=== PATIENT | female | born 1930 | race Caucasian/White ===

== ENCOUNTER 2017-04-17 08:20 | Emergency (ER) | payer MEDICARE, OTHER ==
[2017-04-17] MEDS ORDERED: Aspirin 81 MG Tab.Chew PO ONE (08:31)
[2017-04-17] MEDS ORDERED: Nitroglycerin 2% Oint 1 GM UD Packet TOP ONE (08:31)
--- NOTE | 2017-04-17 08:36 | EDM.PDOC ---
ED HPI GENERAL MEDICAL PROBLEM - General Chief Complaint: Cardiovascular Problem Stated Complaint: Chest pain Time Seen by Provider: 04/17/17 08:20 Source of Information: Reports: Patient, EMS History Limitations: Reports: No Limitations - History of Present Illness INITIAL COMMENTS - FREE TEXT/NARRATIVE: 86 YO WF present to ER by EMS complaining of intermittent chest pain with right arm and shoulder pain. Pt reports she has had associated right sided headaches. Pt denies any shortness of breath, nausea/vomiting or dizziness. Pt denies any weakness or parathesias. Pt's daughter called EMS after her mom started to complain of her head hurting. Pt is alert and oriented x 3 and currently painfree. Onset: Sudden Onset Date: 04/17/17 Onset Time: 07:30 Location: Reports: Head, Chest, Upper Extremity, Right Quality: Reports: Ache Severity: Mild Improves with: Reports: None Worsens with: Reports: None Associated Symptoms: Reports: Chest Pain, Headaches. Denies: Cough, cough w sputum, Diaphoresis, Fever/Chills, Nausea/Vomiting, Seizure, Shortness of Breath , Syncope, Weakness Right Upper Arm Pain Score (Numeric/FACES): 6 - Related Data Allergies Allergy/AdvReac Type Severity Reaction Status Date / Time morphine Allergy Unknown Cannot Verified 04/17/17 09:06 Remember Sulfa (Sulfonamide Allergy Unknown Cannot Verified 04/17/17 09:06 Antibiotics) Remember Home Meds: Home Meds ALPRAZolam [Alprazolam] 0.125 mg PO BID PRN 04/30/13 [History] Aspirin [Halfprin] 81 mg PO BEDTIME 04/30/13 [History] Hydrochlorothiazide 12.5 mg PO DAILY PRN 04/30/13 [History] Metoprolol Tartrate [Lopressor] 25 mg PO BID 04/30/13 [History] Multivitamin [Multi-Vitamin Daily] 1 tab PO DAILY 04/30/13 [History] Omeprazole 20 mg PO ACBREAKFAST 04/30/13 [History] metFORMIN [Glucophage] 1,000 mg PO BIDMEALS 05/02/13 [History] Levothyroxine 125 mcg PO ACBREAKFAST 01/13/15 [History] Sertraline HCl 100 mg PO BEDTIME 04/07/16 [History] Acetaminophen with Codeine [Tylenol with Codeine #3 Tablet] 1 tab PO BID PRN 01/13 [History] Magnesium Oxide 500 mg PO DAILY 06/07/16 [History] Timolol Maleate [Timoptic 0.5% Ophth Soln] 5 ml EYEBOTH BID 06/07/16 [History] Cetirizine [ZyrTEC] 10 mg PO DAILY PRN 04/17/17 [History] glipiZIDE [Glipizide ER] 2.5 mg PO DAILY 04/17/17 [History] Past Medical History HEENT History: Reports: Hard of Hearing, Impaired Vision Cardiovascular History: Reports: High Cholesterol, Hypertension, [place] Respiratory History: Reports: COPD, SOB Other Respiratory History: on home O2 Gastrointestinal History: Reports: Chronic Constipation, GERD Genitourinary History: Reports: Urinary Incontinence Musculoskeletal History: Reports: Arthritis, Other (See Below) Other Musculoskeletal History: chronic knee pain Neurological History: Reports: Headaches, Chronic Psychiatric History: Reports: Anxiety Endocrine/Metabolic History: Reports: Diabetes, Type II, Hypothyroidism Hematologic History: Reports: Anemia, B12 Deficiency Oncologic (Cancer) History: Reports: Uterine - Infectious Disease History Infectious Disease History: Reports: Shingles - Past Surgical History GI Surgical History: Reports: Appendectomy Female Surgical History: Reports: Hysterectomy Social & Family History - Tobacco Use Smoking Status *Q: Former Smoker Years of Tobacco use: 30 Packs/Tins Daily: 1.5 Used Tobacco, but Quit: Yes Month Tobacco Last Used: 20 Second Hand Smoke Exposure: No - Caffeine Use Caffeine Use: Reports: Coffee - Alcohol Use Days Per Week of Alcohol Use: 0 - Recreational Drug Use Recreational Drug Use: No ED ROS GENERAL - Review of Systems Review Of Systems: See Below Constitutional: Reports: No Symptoms HEENT: Reports: No Symptoms Respiratory: Reports: No Symptoms Cardiovascular: Reports: Chest Pain Endocrine: Reports: No Symptoms GI/Abdominal: Reports: No Symptoms : Reports: No Symptoms Musculoskeletal: Reports: Shoulder Pain, Arm Pain Skin: Reports: No Symptoms Neurological: Reports: Headache Psychiatric: Reports: No Symptoms Hematologic/Lymphatic: Reports: No Symptoms Immunologic: Reports: No Symptoms ED EXAM, GENERAL - Physical Exam Exam: See Below Exam Limited By: No Limitations General Appearance: Alert, WD/WN, No Apparent Distress Eye Exam: Bilateral Eye: EOMI, PERRL Ears: Normal External Exam, Normal Canal, Hearing Grossly Normal, Normal TMs Nose: Normal Inspection, Normal Mucosa, No Blood Throat/Mouth: Normal Inspection, Normal Lips, Normal Teeth, Normal Gums, Normal Oropharynx, Normal Voice, No Airway Compromise Head: Atraumatic, Normocephalic Neck: Normal Inspection, Supple, Non-Tender, Full Range of Motion Respiratory/Chest: No Respiratory Distress, Lungs Clear, Normal Breath Sounds, No Accessory Muscle Use, Chest Non-Tender Cardiovascular: Normal Peripheral Pulses, No Edema, No Gallop, No JVD, No Murmur , No Rub, Irregularly Irregular GI/Abdominal: Normal Bowel Sounds, Soft, Non-Tender, No Organomegaly, No Distention, No Abnormal Bruit, No Mass Back Exam: Normal Inspection, Full Range of Motion, NT Extremities: Normal Inspection, Normal Range of Motion, Non-Tender, Normal Capillary Refill, No Pedal Edema Neurological: Alert, Oriented, CN II-XII Intact, Normal Cognition, Normal Gait, Normal Reflexes, No Motor/Sensory Deficits Psychiatric: Normal Affect, Normal Mood Skin Exam: Warm, Dry, Intact, Normal Color, No Rash Lymphatic: No Adenopathy EKG INTERPRETATION EKG Date: 04/17/17 Time: 08:42 Rhythm: NSR Rate (Beats/Min): 82 [place]: LAD-Left [place] Deviation P-Wave: Present QRS: Normal ST-T: Normal QT: Normal Comparison: NA - No Prior EKG Course - Vital Signs Last Recorded V/S: Last Vital Signs Temp 35.7 C 04/17/17 09:25 Pulse 86 04/17/17 09:25 Resp 26 H 04/17/17 09:25 BP 148/68 H 04/17/17 09:25 Pulse Ox 94 L 04/17/17 09:25 - Orders/Labs/Meds Orders: Active Orders 24 hr Category Date Time Status EKG Documentation Completion [RC] ASDIRECTED Care 04/17/17 08:31 Active Chest 1V Frontal [CR] Stat Exams 04/17/17 08:31 Ordered Head wo Cont [CT] Stat Exams 04/17/17 08:31 Taken EKG 12 Lead [EK] Routine Ther 04/17/17 08:31 Ordered Labs: Laboratory Tests 04/17/17 04/17/17 04/17/17 Range/Units 08:10 08:10 08:10 WBC 8.1 (5.0-10.0) 10^3/uL RBC 4.34 (3.80-5.50) 10^6/uL Hgb 12.2 (12.0-16.0) g/dL Hct 38.1 (37.0-47.0) % MCV 87.8 (82.0-92.0) fL MCH 28.2 (27.0-31.0) pg MCHC 32.1 (32.0-36.0) g/dL RDW 13.2 (11.5-14.5) % Plt Count 224 (150-300) 10^3/uL MPV 8.5 (7.4-10.4) fL Neut % (Auto) 62.1 (50.0-70.0) % Lymph % (Auto) 26.7 (20.0-40.0) % [place] % (Auto) 8.2 H (2.0-8.0) % Eos % (Auto) 2.6 (1.0-3.0) % Baso % (Auto) 0.4 (0.0-1.0) % Neut # (Auto) 5.0 (2.5-7.0) 10^3/uL Lymph # (Auto) 2.2 (1.0-4.0) 10^3/uL [place] # (Auto) 0.7 (0.1-0.8) 10^3/uL Eos # (Auto) 0.2 (0.1-0.3) 10^3/uL Baso # (Auto) 0.0 (0.0-0.1) 10^3/uL PT 9.3 (8.9-11.4) SEC INR 0.9 (0.9-1.1) APTT 23.0 (20.8-31.2) SEC Sodium 143 (136-145) mmol/L Potassium 4.6 (3.3-5.3) mmol/L Chloride 105 (98-115) mmol/L Carbon Dioxide 33.0 H (21.0-32.0) mmol/L BUN 21 (6-25) mg/dL Creatinine 0.88 (0.51-1.17) mg/dL Est Cr Clr Drug Dosing 32.96 mL/min Estimated GFR (MDRD) > 60 mL/min Glucose 154 H (70-110) mg/dL Calcium 9.1 (8.7-10.3) mg/dL Total Bilirubin 0.3 (0.2-1.0) mg/dL AST 16 (15-37) U/L ALT 19 (12-78) U/L Alkaline Phosphatase 74 (46-116) IU/L Creatine Kinase 29 (26-276) U/L CK-MB (CK-2) < 0.50 (0.00-4.30) ng/mL Troponin I < 0.04 (0.00-0.070) ng/mL Total Protein 7.0 (6.4-8.2) g/dL Albumin 3.60 (3.00-4.80) g/dL Meds: Medications Discontinued Medications Generic Name Dose Route Start Last Admin Trade Name Freq PRN Reason Stop Dose Admin Aspirin 324 mg 04/17/17 08:31 04/17/17 08:46 Aspirin PO 04/17/17 08:32 324 mg ONETIME ONE Administration Nitroglycerin 1 gm 04/17/17 08:31 04/17/17 08:47 Nitro-Bid 2% TOP 04/17/17 08:32 1 gm ONETIME ONE Administration - Radiology Interpretation Free Text/Narrative:: CXR- NAD CT Head- NAD Departure - Departure Time of Disposition: 09:54 Disposition: Home, Self-Care 01 Condition: Good Clinical Impression: Extremity pain Qualifiers: Extremity pain location: upper extremity Laterality: right Qualified Code(s): M79.601 - Pain in right arm Headache Qualifiers: Headache type: unspecified Headache chronicity pattern: episodic headache Intractability: not intractable Qualified Code(s): R51 - Headache - Discharge Information Instructions: Headache and Arthritis Referrals: Krzysztof Patel MD [Primary Care Provider] - Forms: ED Department Discharge - My Orders Last 24 Hours: My Active Orders 04/17/17 08:31 EKG Documentation Completion [RC] ASDIRECTED Chest 1V Frontal [CR] Stat Head wo Cont [CT] Stat EKG 12 Lead [EK] Routine - Assessment/Plan Last 24 Hours: My Active Orders 04/17/17 08:31 EKG Documentation Completion [RC] ASDIRECTED Chest 1V Frontal [CR] Stat Head wo Cont [CT] Stat EKG 12 Lead [EK] Routine Assessment:: 1. right sided pain without weakness or parathesia 2. questionable chest pain- negative ER workup Plan: 1. discharge home 2. discussed case with Dr Greco who states he will see patient in clinic- Pt has been evaluated for right sided pain in the past and is scheduled for physical therapy this saturday and follow up in the office this week 3. return to ER for worsening symptoms
[2017-04-17 09:24] LABS: CHLORIDE,CL 105 mmol/L (98-115); SODIUM,NA 143 mmol/L (136-145)
[2017-04-17 09:27] VITALS: BP 148/68
[2017-04-17] MEDS ORDERED: Ketorolac 30 MG/ML SDV IVPUSH ONE (09:59)
== END 2017-04-17 10:50 | disposition home or self-care (01) ==
LOC: KA.ED 08:20
DX: R51 Headache (principal); M79.601 Pain in right arm; E78.00 Pure hypercholesterolemia, unspecified; I10 Essential (primary) hypertension; E11.9 Type 2 diabetes mellitus without complications; Z88.5 Allergy status to narcotic agent; Z88.2 Allergy status to sulfonamides; Z79.899 Other long term (current) drug therapy; Z79.82 Long term (current) use of aspirin; Z79.84 Long term (current) use of oral hypoglycemic drugs; Z87.891 Personal history of nicotine dependence
CPT/HCPCS: 70450; 71010; 80053; 82550; 82553; 84484; 85025; 85610; 85730; 96374; 99285; A9270; J1885; 93005; 99284

== ENCOUNTER 2018-05-05 18:02 | Emergency (ER) | payer MEDICARE, OTHER ==
--- NOTE | 2018-05-05 18:23 | EDM.PDOC ---
ED HPI GENERAL MEDICAL PROBLEM - General Chief Complaint: Lower Extremity Injury/Pain Stated Complaint: leg pain Time Seen by Provider: 05/05/18 18:02 Source of Information: Reports: Patient, Other (caregiver) History Limitations: Reports: Altered Mental Status (chronic dementia) - History of Present Illness INITIAL COMMENTS - FREE TEXT/NARRATIVE: Patient brought to ER with complaint of left leg pain. Not sure how long. Now patient identifies low abdominal pain. She says she has frequent diarrhea. There is evidence of significant dementia that is not abnormal per caregiver. - Related Data Allergies Allergy/AdvReac Type Severity Reaction Status Date / Time morphine Allergy Unknown Cannot Verified 05/05/18 18:46 Remember Sulfa (Sulfonamide Allergy Unknown Cannot Verified 05/05/18 18:46 Antibiotics) Remember Home Meds: Home Meds ALPRAZolam [Alprazolam] 0.125 mg PO BID PRN 04/30/13 [History] Aspirin [Halfprin] 81 mg PO BEDTIME 04/30/13 [History] Hydrochlorothiazide 12.5 mg PO DAILY PRN 04/30/13 [History] Metoprolol Tartrate [Lopressor] 25 mg PO BID 04/30/13 [History] Multivitamin [Multi-Vitamin Daily] 1 tab PO DAILY 04/30/13 [History] Omeprazole 20 mg PO ACBREAKFAST 04/30/13 [History] metFORMIN [Glucophage] 1,000 mg PO BIDMEALS 05/02/13 [History] Levothyroxine 125 mcg PO ACBREAKFAST 01/13/15 [History] Sertraline HCl 100 mg PO BEDTIME 04/07/16 [History] Acetaminophen with Codeine [Tylenol with Codeine #3 Tablet] 1 tab PO BID PRN 01/13 [History] Magnesium Oxide 500 mg PO DAILY 06/07/16 [History] Timolol Maleate [Timoptic 0.5% Ophth Soln] 5 ml EYEBOTH BID 06/07/16 [History] Cetirizine [ZyrTEC] 10 mg PO DAILY PRN 04/17/17 [History] glipiZIDE [Glipizide ER] 2.5 mg PO DAILY 04/17/17 [History] Past Medical History HEENT History: Reports: Hard of Hearing, Impaired Vision Cardiovascular History: Reports: High Cholesterol, Hypertension, [place] Respiratory History: Reports: COPD, SOB Other Respiratory History: on home O2 Gastrointestinal History: Reports: Chronic Constipation, GERD Genitourinary History: Reports: Urinary Incontinence [employer] History: Reports: Musculoskeletal History: Reports: Arthritis, Other (See Below) Other Musculoskeletal History: chronic knee pain Neurological History: Reports: Headaches, Chronic Psychiatric History: Reports: Anxiety Endocrine/Metabolic History: Reports: Diabetes, Type II, Hypothyroidism Hematologic History: Reports: Anemia, B12 Deficiency Oncologic (Cancer) History: Reports: Uterine - Infectious Disease History Infectious Disease History: Reports: Shingles - Past Surgical History GI Surgical History: Reports: Appendectomy Female Surgical History: Reports: Hysterectomy Social & Family History - Family History Family Medical History: Noncontributory - Caffeine Use Caffeine Use: Reports: Coffee Caffeine Use Comment: coke once in awhile Review of Systems - Review of Systems Review Of Systems: ROS reveals no pertinent complaints other than HPI. ED EXAM, GENERAL - Physical Exam Exam: See Below Exam Limited By: Altered Mental Status General Appearance: Alert, WD/WN, No Apparent Distress Eye Exam: Bilateral Eye: EOMI, Normal Inspection, PERRL Ears: Normal External Exam, Hearing Loss (chronic) Nose: Normal Inspection, No Blood Throat/Mouth: Normal Inspection, Normal Lips, Normal Voice, No Airway Compromise Head: Atraumatic, Normocephalic Neck: Normal Inspection, Supple, Non-Tender, Full Range of Motion Respiratory/Chest: No Respiratory Distress, Lungs Clear, Normal Breath Sounds, No Accessory Muscle Use. No: Crackles, Rales, Rhonchi, Wheezing, Stridor Cardiovascular: Normal Peripheral Pulses, Regular Rate, Rhythm, No Edema, No Gallop, No JVD, No Murmur, No Rub Peripheral Pulses: 2+: Carotid (L), Carotid (R), Radial (L), Radial (R), Posterior Tibial (L), Posterior Tibial (R) GI/Abdominal: Normal Bowel Sounds, Soft, No Organomegaly, No Distention, No Abnormal Bruit, No Mass, Tender (mildly, suprapubic). No: Distended, Guarding, Rigid, Rebound Back Exam: No: CVA Tenderness (L), CVA Tenderness (R) Extremities: Normal Range of Motion, No Pedal Edema, Normal Capillary Refill, Other (Exam normal except a vague lateral thigh pain on palpation; not consistently repeatable). No: Mottled, Pallor, Redness Neurological: Alert, No Motor/Sensory Deficits, Memory Loss Remote Events, Memory Loss Recent Events Psychiatric: Normal Affect, Normal Mood, Other (verbose and suspicious) Skin Exam: Warm, Dry, Intact, Normal Color, No Rash Course - Vital Signs Last Recorded V/S: Last Vital Signs Temp 98.2 F 05/05/18 18:06 Pulse 77 05/05/18 18:06 Resp 21 H 05/05/18 18:06 BP 151/54 H 05/05/18 18:06 Pulse Ox 93 L 05/05/18 18:06 - Orders/Labs/Meds Orders: Active Orders 24 hr Category Date Time Status Hip Min 2V or 3V w Pelvis Lt [CR] Stat Exams 05/05/18 18:13 Ordered Labs: Laboratory Tests 05/05/18 05/05/18 05/05/18 Range/Units 18:25 18:27 18:27 WBC 6.89 (5.00-10.00) 10^3/uL RBC 3.85 (3.80-5.50) 10^6/uL Hgb 11.1 L (12.0-16.0) g/dL Hct 35.4 L (37.0-47.0) % MCV 91.9 D (82.0-92.0) fL MCH 28.8 (27.0-31.0) pg MCHC 31.4 L (32.0-36.0) g/dL RDW 13.1 (11.5-14.5) % Plt Count 186 (150-400) 10^3/uL MPV 10.0 (7.4-10.4) fL Immature Gran % (Auto) 0.3 (0.0-5.0) % Neut % (Auto) 58.4 (50.0-70.0) % Lymph % (Auto) 29.2 (20.0-40.0) % [place] % (Auto) 9.4 H (2.0-8.0) % Eos % (Auto) 2.6 (1.0-3.0) % Baso % (Auto) 0.1 (0.0-1.0) % Immature Gran # (Auto) 0.02 (0.00-0.50) 10^3/uL Neut # (Auto) 4.02 (2.50-7.00) 10^3/uL Lymph # (Auto) 2.01 (1.00-4.00) 10^3/uL [place] # (Auto) 0.65 (0.10-0.80) 10^3/uL Eos # (Auto) 0.18 (0.10-0.30) 10^3/uL Baso # (Auto) 0.01 (0.00-0.10) 10^3/uL Sodium 144 (136-145) mmol/L Potassium 4.6 (3.3-5.3) mmol/L Chloride 104 (98-115) mmol/L Carbon Dioxide 27.5 (21.0-32.0) mmol/L Anion Gap 17.1 H (5-15) mmol/L BUN 19 (6-25) mg/dL Creatinine 0.87 (0.51-1.17) mg/dL Est Cr Clr Drug Dosing TNP Estimated GFR (MDRD) > 60 mL/min Glucose 86 (75 - 99) mg/dL POC Glucose 80 (74-106) mg/dl Calcium 8.4 L (8.7-10.3) mg/dL Total Bilirubin 0.2 (0.2-1.0) mg/dL AST 12 L (15-37) U/L ALT 17 (12-78) U/L Alkaline Phosphatase 60 (46-116) IU/L Total Protein 6.4 (6.4-8.2) g/dL Albumin 3.29 (3.00-4.80) g/dL Specimen Type Urine Color (YELLOW) Urine Appearance (CLEAR) Urine pH (5.0-9.0) Ur Specific [place] (1.005-1.030) Urine Protein (NEGATIVE) mg/dL Urine Glucose (UA) (NEGATIVE) mg/dL Urine Ketones (NEGATIVE) mg/dL Urine Occult Blood (NEGATIVE) Urine Nitrite (NEGATIVE) Urine Bilirubin (NEGATIVE) Urine Urobilinogen (0.2-1.0) E.U./dL Ur Leukocyte Esterase (NEGATIVE) Urine RBC (0-5) /HPF Urine WBC (0-5) /HPF Ur Epithelial Cells /LPF Urine Bacteria (NONE TO FEW) /HPF Hyaline Casts (NEGATIVE) /LPF Urine Mucus (NEGATIVE) /LPF 05/05/18 Range/Units 18:40 WBC (5.00-10.00) 10^3/uL RBC (3.80-5.50) 10^6/uL Hgb (12.0-16.0) g/dL Hct (37.0-47.0) % MCV (82.0-92.0) fL MCH (27.0-31.0) pg MCHC (32.0-36.0) g/dL RDW (11.5-14.5) % Plt Count (150-400) 10^3/uL MPV (7.4-10.4) fL Immature Gran % (Auto) (0.0-5.0) % Neut % (Auto) (50.0-70.0) % Lymph % (Auto) (20.0-40.0) % [place] % (Auto) (2.0-8.0) % Eos % (Auto) (1.0-3.0) % Baso % (Auto) (0.0-1.0) % Immature Gran # (Auto) (0.00-0.50) 10^3/uL Neut # (Auto) (2.50-7.00) 10^3/uL Lymph # (Auto) (1.00-4.00) 10^3/uL [place] # (Auto) (0.10-0.80) 10^3/uL Eos # (Auto) (0.10-0.30) 10^3/uL Baso # (Auto) (0.00-0.10) 10^3/uL Sodium (136-145) mmol/L Potassium (3.3-5.3) mmol/L Chloride (98-115) mmol/L Carbon Dioxide (21.0-32.0) mmol/L Anion Gap (5-15) mmol/L BUN (6-25) mg/dL Creatinine (0.51-1.17) mg/dL Est Cr Clr Drug Dosing Estimated GFR (MDRD) mL/min Glucose (75 - 99) mg/dL POC Glucose (74-106) mg/dl Calcium (8.7-10.3) mg/dL Total Bilirubin (0.2-1.0) mg/dL AST (15-37) U/L ALT (12-78) U/L Alkaline Phosphatase (46-116) IU/L Total Protein (6.4-8.2) g/dL Albumin (3.00-4.80) g/dL Specimen Type Urinblad Urine Color Yellow (YELLOW) Urine Appearance Clear (CLEAR) Urine pH 5.5 (5.0-9.0) Ur Specific [place] 1.025 (1.005-1.030) Urine Protein Negative (NEGATIVE) mg/dL Urine Glucose (UA) Negative (NEGATIVE) mg/dL Urine Ketones Negative (NEGATIVE) mg/dL Urine Occult Blood Negative (NEGATIVE) Urine Nitrite Negative (NEGATIVE) Urine Bilirubin Negative (NEGATIVE) Urine Urobilinogen 0.2 (0.2-1.0) E.U./dL Ur Leukocyte Esterase Negative (NEGATIVE) Urine RBC 0-5 (0-5) /HPF Urine WBC 5-10 H (0-5) /HPF Ur Epithelial Cells Moderate H /LPF Urine Bacteria Few (NONE TO FEW) /HPF Hyaline Casts Occasional H (NEGATIVE) /LPF Urine Mucus Moderate H (NEGATIVE) /LPF - Re-Assessments/Exams Free Text/Narrative Re-Assessment/Exam: 05/05/18 19:04 Labs and xrays okay. Patient said she is not having any pain now. 05/05/18 19:10 Patient now points to her buttocks and says she hurts there identifying the left upper buttock. I examined this and found no sores, redness or ecchymosis. She has hemorrhoids but not inflamed or bleeding. Pelvis xray looks good. I discussed findings and treatment plan with daughter who just arrived. She is trying to get her set up with home PT for sciatica. Patient discharged to home in stable condition. Departure - Departure Time of Disposition: 19:23 Disposition: Home, Self-Care 01 Condition: Good Clinical Impression: Left buttock pain - Discharge Information Forms: ED Department Discharge Additional Instructions: 1. Continue the tylenol as needed. 2. I recommend pursuing PT treatment as discussed. - My Orders Last 24 Hours: My Active Orders 05/05/18 18:13 Hip Min 2V or 3V w Pelvis Lt [CR] Stat - Assessment/Plan Last 24 Hours: My Active Orders 05/05/18 18:13 Hip Min 2V or 3V w Pelvis Lt [CR] Stat
[2018-05-05 18:57] LABS: ANION GAP 17.1 mmol/L (5-15); CHLORIDE,CL 104 mmol/L (98-115); SODIUM,NA 144 mmol/L (136-145)
[2018-05-05 19:16] VITALS: BP 138/51
== END 2018-05-05 19:44 | disposition home or self-care (01) ==
LOC: KA.ED 18:02
DX: M79.18 Myalgia, other site (principal); K64.9 Unspecified hemorrhoids; M54.89 Other dorsalgia; E78.00 Pure hypercholesterolemia, unspecified; J44.9 Chronic obstructive pulmonary disease, unspecified; I25.2 Old myocardial infarction; K21.9 Gastro-esophageal reflux disease without esophagitis; I10 Essential (primary) hypertension; E11.9 Type 2 diabetes mellitus without complications; E03.9 Hypothyroidism, unspecified; F41.9 Anxiety disorder, unspecified; Z79.84 Long term (current) use of oral hypoglycemic drugs; Z79.899 Other long term (current) drug therapy; Z88.5 Allergy status to narcotic agent; Z88.2 Allergy status to sulfonamides; Z90.89 Acquired absence of other organs; Z90.710 Acquired absence of both cervix and uterus; Z79.82 Long term (current) use of aspirin
CPT/HCPCS: 36415; 80053; 81001; 82962; 85025; 99282; 99284

== ENCOUNTER 2018-05-25 12:49 | Emergency (ER) | payer MEDICARE, OTHER ==
--- NOTE | 2018-05-25 12:57 | EDM.PDOC ---
ED HPI GENERAL MEDICAL PROBLEM - General Chief Complaint: ENT Problem Stated Complaint: ? FOREIGN OBJET IN THROAT Time Seen by Provider: 05/25/18 12:50 Source of Information: Reports: Patient History Limitations: Reports: No Limitations - History of Present Illness INITIAL COMMENTS - FREE TEXT/NARRATIVE: 87 YO WF presents to ER with complaints of sensation of foreign body in her throat. Pt has had this issue in the past 03/27/15 and was found to have no radiological evidence of foreign body. Pt denies any difficulty breathing, denies dysphagia to solids or liquids, no chest pain or shortness of breath. Pt without stridor or wheezing or change in voice. Pt denies any known episode of foreign body ingestion but states it "feels like something is in my throat". Pt tolerating fluid challenge and was able to eat breakfast this am. Onset Date: 05/24/18 Duration: Day(s): (2) Location: Reports: Neck Quality: Reports: Dull Severity: Mild Improves with: Reports: None Worsens with: Reports: Other (swallowing) Associated Symptoms: Reports: No Other Symptoms. Denies: Cough, Fever/Chills, Nausea/Vomiting, Shortness of Breath Throat Pain Score (Numeric/FACES): 8 - Related Data Allergies Allergy/AdvReac Type Severity Reaction Status Date / Time morphine Allergy Unknown Cannot Verified 05/25/18 12:56 Remember Sulfa (Sulfonamide Allergy Unknown Cannot Verified 05/25/18 12:56 Antibiotics) Remember Home Meds: Home Meds ALPRAZolam [Alprazolam] 0.125 mg PO BID PRN 04/30/13 [History] Aspirin [Halfprin] 81 mg PO BEDTIME 04/30/13 [History] Hydrochlorothiazide 12.5 mg PO DAILY PRN 04/30/13 [History] Metoprolol Tartrate [Lopressor] 25 mg PO BID 04/30/13 [History] Multivitamin [Multi-Vitamin Daily] 1 tab PO DAILY 04/30/13 [History] Omeprazole 20 mg PO ACBREAKFAST 04/30/13 [History] metFORMIN [Glucophage] 1,000 mg PO BIDMEALS 05/02/13 [History] Levothyroxine 125 mcg PO ACBREAKFAST 01/13/15 [History] Sertraline HCl 100 mg PO BEDTIME 04/07/16 [History] Acetaminophen with Codeine [Tylenol with Codeine #3 Tablet] 1 tab PO BID PRN 01/13 [History] Magnesium Oxide 500 mg PO DAILY 06/07/16 [History] Timolol Maleate [Timoptic 0.5% Ophth Soln] 5 ml EYEBOTH BID 06/07/16 [History] Cetirizine [ZyrTEC] 10 mg PO DAILY PRN 04/17/17 [History] glipiZIDE [Glipizide ER] 2.5 mg PO DAILY 04/17/17 [History] Past Medical History HEENT History: Reports: Hard of Hearing, Impaired Vision Cardiovascular History: Reports: High Cholesterol, Hypertension, [place] Respiratory History: Reports: COPD, SOB Other Respiratory History: on home O2 Gastrointestinal History: Reports: Chronic Constipation, GERD Genitourinary History: Reports: Urinary Incontinence 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: Musculoskeletal History: Reports: Arthritis, Other (See Below) Other Musculoskeletal History: chronic knee pain Neurological History: Reports: Headaches, Chronic Psychiatric History: Reports: Anxiety Endocrine/Metabolic History: Reports: Diabetes, Type II, Hypothyroidism Hematologic History: Reports: Anemia, B12 Deficiency Oncologic (Cancer) History: Reports: Uterine - Infectious Disease History Infectious Disease History: Reports: Shingles - Past Surgical History GI Surgical History: Reports: Appendectomy Female Surgical History: Reports: Hysterectomy Social & Family History - Family History Family Medical History: Noncontributory - Caffeine Use Caffeine Use: Reports: Coffee Caffeine Use Comment: coke once in awhile ED ROS ENT - Review of Systems Review Of Systems: See Below Constitutional: Reports: No Symptoms HEENT: Reports: Throat Pain. Denies: Throat Swelling Respiratory: Reports: No Symptoms Cardiovascular: Reports: No Symptoms Endocrine: Reports: No Symptoms GI/Abdominal: Reports: No Symptoms : Reports: No Symptoms Musculoskeletal: Reports: No Symptoms Skin: Reports: No Symptoms Neurological: Reports: No Symptoms Psychiatric: Reports: No Symptoms Hematologic/Lymphatic: Reports: No Symptoms Immunologic: Reports: No Symptoms ED EXAM, ENT - Physical Exam Exam: See Below Exam Limited By: No Limitations General Appearance: Alert, WD/WN, No Apparent Distress Nose: Normal Inspection, Normal Mucousa, No Blood Mouth/Throat: Normal Inspection, Normal Gums, Normal Lips, Normal Oropharynx, Normal Teeth Head: Atraumatic, Normocephalic Neck: Normal Inspection, Supple, Non-Tender, Full Range of Motion Respiratory/Chest: No Respiratory Distress, Lungs Clear, Normal Breath Sounds, No Accessory Muscle Use, Chest Non-Tender Cardiovascular: Normal Peripheral Pulses, Regular Rate, Rhythm, No Edema, No Gallop, No JVD, No Murmur, No Rub GI/Abdominal: Normal Bowel Sounds, Soft, Non-Tender, No Organomegaly, No Distention, No Abnormal Bruit, No Mass Back: Normal Inspection, Full Range of Motion Extremities: Normal Inspection, Normal Range of Motion, Non-Tender, No Pedal Edema, Normal Capillary Refill Neurological: Alert, Oriented, CN II-XII Intact, Normal Cognition, Normal Gait, Normal Reflexes, No Motor/Sensory Deficits Psychiatric: Normal Affect, Normal Mood Skin: Warm, Dry, Intact, Normal Color, No Rash Lymphatic: No Adenopathy Course - Vital Signs Last Recorded V/S: Last Vital Signs Temp 36.2 C 05/25/18 12:56 Pulse 86 05/25/18 12:56 Resp 20 05/25/18 12:56 BP 117/79 05/25/18 12:56 Pulse Ox 90 L 05/25/18 12:56 - Orders/Labs/Meds Orders: Active Orders 24 hr Category Date Time Status Neck Soft Tissue [CR] Stat Exams 05/25/18 12:54 Ordered Meds: Medications Discontinued Medications Generic Name Dose Route Start Last Admin Trade Name Freq PRN Reason Stop Dose Admin Al Hydroxide/Mg Hydroxide 45 ml 05/25/18 13:19 Gi Cocktail PO 05/25/18 13:20 ONETIME ONE - Radiology Interpretation Free Text/Narrative:: xray- no evidence of foreign body Departure - Departure Time of Disposition: 13:31 Disposition: Home, Self-Care 01 Condition: Good Clinical Impression: Sore throat - Discharge Information Instructions: Dysphagia, Sore Throat, [id number] Referrals: Shannon Man PA-C [Primary Care Provider] - Forms: ED Department Discharge Additional Instructions: 1. discharge home 2. GI cocktail 3. tylenol/motrin for pain 4. follow up in clinic for further evaluation and treatment - My Orders Last 24 Hours: My Active Orders 05/25/18 12:54 Neck Soft Tissue [CR] Stat - Assessment/Plan Last 24 Hours: My Active Orders 05/25/18 12:54 Neck Soft Tissue [CR] Stat Assessment:: 1. sore throat Plan: 1. discharge home 2. GI cocktail 3. tylenol/motrin for pain 4. follow up in clinic for further evaluation and treatment
[2018-05-25 13:01] VITALS: BP 117/79
[2018-05-25] MEDS ORDERED: GI Cocktail 45 ML BOTTLE PO ONE (13:19)
== END 2018-05-25 14:10 | disposition home or self-care (01) ==
LOC: KA.ED 12:49
DX: J02.9 Acute pharyngitis, unspecified (principal); E78.00 Pure hypercholesterolemia, unspecified; I10 Essential (primary) hypertension; I25.2 Old myocardial infarction; J44.9 Chronic obstructive pulmonary disease, unspecified; E11.9 Type 2 diabetes mellitus without complications; E03.9 Hypothyroidism, unspecified; Z79.82 Long term (current) use of aspirin; Z79.899 Other long term (current) drug therapy; Z79.84 Long term (current) use of oral hypoglycemic drugs; Z88.2 Allergy status to sulfonamides
CPT/HCPCS: 70360; 99283; A9270-GY

== ENCOUNTER 2018-07-23 02:27 | Emergency (ER) | payer MEDICARE, OTHER ==
--- NOTE | 2018-07-23 03:12 | EDM.PDOC ---
ED HPI GENERAL MEDICAL PROBLEM - General Chief Complaint: General Stated Complaint: tachy concern by pt Time Seen by Provider: 07/23/18 03:03 Source of Information: Reports: Patient, Family (Daughter) History Limitations: Reports: No Limitations - History of Present Illness INITIAL COMMENTS - FREE TEXT/NARRATIVE: Patient is an 88-year-old female who presents to the emergency department via EMS secondary to increased heart rate. Her daughter states that she's been checking her heart rate hourly and noticed a heart rate gradually increasing to over 100. Daughter states her heart rate is usually runs 80s and 90s, but she was concerned because it was over 100. Daughter then called EMS Patient was seen at the [facility] yesterday and prescribed prednisone 20 mg twice a day as well as albuterol nebulizer treatments for upper respiratory symptoms. Upon presentation, patient states that she had some upper abdominal lower chest discomfort yesterday morning but does not have any currently. Patient denies shortness of breath, headache, fever, abdominal pain, nausea, vomiting, diarrhea , any change in medication other than the addition of prednisone and albuterol. Onset: Today Quality: Reports: Other (No chest pain upon presentation) Improves with: Reports: None Worsens with: Reports: None Associated Symptoms: Reports: No Other Symptoms - Related Data Allergies Allergy/AdvReac Type Severity Reaction Status Date / Time morphine Allergy Unknown Cannot Verified 07/23/18 02:37 Remember Sulfa (Sulfonamide Allergy Unknown Cannot Verified 07/23/18 02:37 Antibiotics) Remember Home Meds: Home Meds ALPRAZolam [Alprazolam] 0.125 mg PO BID PRN 04/30/13 [History] Aspirin [Halfprin] 81 mg PO BEDTIME 04/30/13 [History] Hydrochlorothiazide 12.5 mg PO DAILY PRN 04/30/13 [History] Metoprolol Tartrate [Lopressor] 25 mg PO BID 04/30/13 [History] Multivitamin [Multi-Vitamin Daily] 1 tab PO DAILY 04/30/13 [History] Omeprazole 20 mg PO ACBREAKFAST 04/30/13 [History] metFORMIN [Glucophage] 1,000 mg PO BIDMEALS 05/02/13 [History] Levothyroxine 125 mcg PO ACBREAKFAST 01/13/15 [History] Sertraline HCl 100 mg PO BEDTIME 04/07/16 [History] Acetaminophen with Codeine [Tylenol with Codeine #3 Tablet] 1 tab PO BID PRN 01/13 [History] Magnesium Oxide 500 mg PO DAILY 06/07/16 [History] Timolol Maleate [Timoptic 0.5% Ophth Soln] 5 ml EYEBOTH BID 06/07/16 [History] Cetirizine [ZyrTEC] 10 mg PO DAILY PRN 04/17/17 [History] glipiZIDE [Glipizide ER] 2.5 mg PO DAILY 04/17/17 [History] predniSONE 20 mg PO BID 07/23/18 [History] Past Medical History HEENT History: Reports: Hard of Hearing, Impaired Vision Cardiovascular History: Reports: High Cholesterol, Hypertension, [place] Respiratory History: Reports: COPD, SOB Other Respiratory History: on home O2 Gastrointestinal History: Reports: Chronic Constipation, GERD Genitourinary History: Reports: Urinary Incontinence 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: Musculoskeletal History: Reports: Arthritis, Other (See Below) Other Musculoskeletal History: chronic knee pain Neurological History: Reports: Headaches, Chronic Psychiatric History: Reports: Anxiety Endocrine/Metabolic History: Reports: Diabetes, Type II, Hypothyroidism Hematologic History: Reports: Anemia, B12 Deficiency Oncologic (Cancer) History: Reports: Uterine - Infectious Disease History Infectious Disease History: Reports: Shingles - Past Surgical History GI Surgical History: Reports: Appendectomy Female Surgical History: Reports: Hysterectomy Social & Family History - Family History Family Medical History: Noncontributory - Caffeine Use Caffeine Use: Reports: Coffee Caffeine Use Comment: coke once in awhile ED ROS GENERAL - Review of Systems Review Of Systems: ROS reveals no pertinent complaints other than HPI. Constitutional: Reports: No Symptoms HEENT: Reports: No Symptoms Respiratory: Reports: No Symptoms Cardiovascular: Reports: Other (Tachycardia). Denies: Chest Pain Endocrine: Reports: No Symptoms GI/Abdominal: Reports: No Symptoms : Reports: No Symptoms Musculoskeletal: Reports: No Symptoms Skin: Reports: No Symptoms Neurological: Reports: No Symptoms Psychiatric: Reports: No Symptoms Hematologic/Lymphatic: Reports: No Symptoms Immunologic: Reports: No Symptoms ED EXAM, GENERAL - Physical Exam Exam: See Below Exam Limited By: No Limitations General Appearance: Alert, WD/WN, No Apparent Distress Throat/Mouth: Normal Inspection, Normal Oropharynx, No Airway Compromise Head: Atraumatic, Normocephalic Neck: Normal Inspection, Supple Respiratory/Chest: No Respiratory Distress, Lungs Clear, No Accessory Muscle Use , Chest Non-Tender, Decreased Breath Sounds (Bibasilar) Cardiovascular: Normal Peripheral Pulses, Regular Rate, Rhythm, No Murmur, No Rub GI/Abdominal: Normal Bowel Sounds, Soft, Non-Tender, No Organomegaly, No Distention, No Abnormal Bruit, No Mass Back Exam: Normal Inspection. No: CVA Tenderness (L), CVA Tenderness (R) Extremities: Non-Tender, Normal Capillary Refill, Pedal Edema (1+ of chronic nature). No: Increased Warmth, Mottled, Pallor, Redness Neurological: Alert, Oriented, Other (Baseline confused, no change per daughter) Psychiatric: Normal Affect, Normal Mood Skin Exam: Warm, Dry, Intact, Normal Color, No Rash EKG INTERPRETATION EKG Date: 07/23/18 Time: 02:55 Rhythm: NSR [place]: LAD-Left [place] Deviation P-Wave: Present QRS: Normal ST-T: Normal QT: Normal Comparison: No Change (From 04/17/2017) Course - Vital Signs Last Recorded V/S: Last Vital Signs Temp 96.8 F 07/23/18 02:41 Pulse 98 07/23/18 02:41 Resp 22 H 07/23/18 02:41 BP 147/79 H 07/23/18 02:41 Pulse Ox 98 07/23/18 02:41 - Orders/Labs/Meds Orders: Active Orders 24 hr Category Date Time Status EKG Documentation Completion [RC] ASDIRECTED Care 07/23/18 02:49 Active Chest 2V [CR] Stat Exams 07/23/18 02:49 Ordered EKG 12 Lead [EK] Routine Ther 07/23/18 02:48 Ordered - Radiology Interpretation Free Text/Narrative:: Chest x-ray shows bilateral perihilar interstitial thickening suggestive of bronchitis - Re-Assessments/Exams Free Text/Narrative Re-Assessment/Exam: 07/23/18 03:39 Patient afebrile, vital signs stable, EKG no change from previous, patient currently on prednisone and albuterol. Glucose Accu-Chek 201. Increased glucose, epigastric discomfort, and increased heart rate, attributed to prednisone and albuterol. Patient will be discharged with a follow-up tomorrow at [facility] for recheck. 07/23/18 03:48 Departure - Departure Time of Disposition: 03:47 Disposition: Home, Self-Care 01 Condition: Good Clinical Impression: Bronchitis - Discharge Information Instructions: Upper Respiratory Infection, Adult, [id number] Referrals: Krzysztof Patel MD [Primary Care Provider] - Additional Instructions: Follow-up at [facility] today for recheck. Decrease prednisone to 20 mg daily with food. Return to emergency department sooner if symptoms continue or worsen. - My Orders Last 24 Hours: My Active Orders 07/23/18 02:48 EKG 12 Lead [EK] Routine 07/23/18 02:49 EKG Documentation Completion [RC] ASDIRECTED Chest 2V [CR] Stat - Assessment/Plan Last 24 Hours: My Active Orders 07/23/18 02:48 EKG 12 Lead [EK] Routine 07/23/18 02:49 EKG Documentation Completion [RC] ASDIRECTED Chest 2V [CR] Stat Assessment:: Bronchitis Plan: Follow-up at [facility]
[2018-07-23 03:41] VITALS: BP 146/72
--- NOTE | 2018-07-23 07:37 | CR ---
[id number] RAD/RAD Chest PA And Lateral EXAM: RAD Chest PA And Lateral CLINICAL DATA: UPPER RESPIRATORY INFECTION COMPARISON: CORRELATION IS MADE WITH THE EXAM OF APRIL 17, 2017. FINDINGS: The lungs are clear. The cardiomediastinal contour is normal. The regional bones and soft tissues are unremarkable. IMPRESSION: NO ACUTE PROCESS. Otilio Ann MD 07/23/18 0736 Thank you for allowing us to participate in the care of your patient.
== END 2018-07-23 04:10 | disposition home or self-care (01) ==
LOC: KA.ED 02:27
DX: J40 Bronchitis, not specified as acute or chronic (principal); E78.00 Pure hypercholesterolemia, unspecified; I10 Essential (primary) hypertension; I25.2 Old myocardial infarction; E11.9 Type 2 diabetes mellitus without complications; E03.9 Hypothyroidism, unspecified; F41.9 Anxiety disorder, unspecified; Z88.8 Allergy status to other drugs, medicaments and biological substances; Z88.2 Allergy status to sulfonamides; Z79.82 Long term (current) use of aspirin; Z79.899 Other long term (current) drug therapy; Z79.4 Long term (current) use of insulin
CPT/HCPCS: 71046; 82962; 93005; 99284; 99285-25

== ENCOUNTER 2018-08-09 01:32 | Emergency (ER) | payer MEDICARE, OTHER ==
[2018-08-09 01:39] VITALS: BP 117/40
--- NOTE | 2018-08-09 02:17 | EDM.PDOC ---
ED HPI GENERAL MEDICAL PROBLEM - General Chief Complaint: Respiratory Problem Stated Complaint: cough Time Seen by Provider: 08/09/18 02:11 Source of Information: Reports: Patient, EMS, EMS Notes Reviewed, Family History Limitations: Reports: No Limitations - History of Present Illness INITIAL COMMENTS - FREE TEXT/NARRATIVE: Patient is an 88-year-old female who presents to the emergency department this morning via EMS secondary to a complaint of cough. Per her daughter, patient developed coughing yesterday morning and it persisted throughout the day. She contacted the [place] provider and she was put on amoxicillin. Patient was not evaluated in person. Patient currently wears nasal cannula at home during the evening. Daughter states that the cough persisted into the evening, so she decided to call 911. Patient was therefore brought to the emergency department via EMS. Patient denies fever, chest pain, nausea, vomiting, diarrhea, abdominal pain, bowel changes, or if cough is associated with possible food bolus. Onset: Today Onset Date: 08/08/18 Duration: Hour(s): Severity: Mild Improves with: Reports: None Worsens with: Reports: None Associated Symptoms: Reports: Cough. Denies: Chest Pain, cough w sputum, Fever/ Chills, Nausea/Vomiting, Shortness of Breath - Related Data Allergies Allergy/AdvReac Type Severity Reaction Status Date / Time morphine Allergy Unknown Cannot Verified 08/09/18 01:40 Remember Sulfa (Sulfonamide Allergy Unknown Cannot Verified 08/09/18 01:40 Antibiotics) Remember Home Meds: Home Meds ALPRAZolam [Alprazolam] 0.125 mg PO BID PRN 04/30/13 [History] Aspirin [Halfprin] 81 mg PO BEDTIME 04/30/13 [History] Hydrochlorothiazide 12.5 mg PO DAILY PRN 04/30/13 [History] Metoprolol Tartrate [Lopressor] 25 mg PO BID 04/30/13 [History] Multivitamin [Multi-Vitamin Daily] 1 tab PO DAILY 04/30/13 [History] Omeprazole 20 mg PO ACBREAKFAST 04/30/13 [History] metFORMIN [Glucophage] 1,000 mg PO BIDMEALS 05/02/13 [History] Levothyroxine 125 mcg PO ACBREAKFAST 01/13/15 [History] Sertraline HCl 100 mg PO BEDTIME 04/07/16 [History] Magnesium Oxide 500 mg PO DAILY 06/07/16 [History] Timolol Maleate [Timoptic 0.5% Ophth Soln] 5 ml EYEBOTH BID 06/07/16 [History] Cetirizine [ZyrTEC] 10 mg PO DAILY PRN 04/17/17 [History] glipiZIDE [Glipizide ER] 2.5 mg PO DAILY 04/17/17 [History] Albuterol Sulfate 2.5 mg IH BID 08/09/18 [History] Amoxicillin 500 mg PO TID 08/09/18 [History] Montelukast [Singulair] 10 mg PO DAILY 08/09/18 [History] Past Medical History HEENT History: Reports: Hard of Hearing, Impaired Vision Cardiovascular History: Reports: High Cholesterol, Hypertension, [place] Respiratory History: Reports: COPD, SOB Other Respiratory History: on home O2 Gastrointestinal History: Reports: Chronic Constipation, GERD Genitourinary History: Reports: Urinary Incontinence 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: Musculoskeletal History: Reports: Arthritis, Other (See Below) Other Musculoskeletal History: chronic knee pain Neurological History: Reports: Headaches, Chronic Psychiatric History: Reports: Anxiety Endocrine/Metabolic History: Reports: Diabetes, Type II, Hypothyroidism Hematologic History: Reports: Anemia, B12 Deficiency Oncologic (Cancer) History: Reports: Uterine - Infectious Disease History Infectious Disease History: Reports: Shingles - Past Surgical History GI Surgical History: Reports: Appendectomy Female Surgical History: Reports: Hysterectomy Social & Family History - Family History Family Medical History: Noncontributory - Caffeine Use Caffeine Use: Reports: Coffee Caffeine Use Comment: coke once in awhile ED ROS GENERAL - Review of Systems Review Of Systems: ROS reveals no pertinent complaints other than HPI. Constitutional: Reports: No Symptoms HEENT: Reports: No Symptoms Respiratory: Reports: Cough. Denies: Shortness of Breath, Wheezing, Pleuritic Chest Pain, Sputum, Hemoptysis Cardiovascular: Reports: No Symptoms Endocrine: Reports: No Symptoms GI/Abdominal: Reports: No Symptoms : Reports: No Symptoms Musculoskeletal: Reports: No Symptoms Skin: Reports: No Symptoms Neurological: Reports: No Symptoms Psychiatric: Reports: No Symptoms Hematologic/Lymphatic: Reports: No Symptoms Immunologic: Reports: No Symptoms ED EXAM, GENERAL - Physical Exam Exam: See Below Exam Limited By: No Limitations General Appearance: Alert, WD/WN, No Apparent Distress Nose: Normal Inspection, Normal Mucosa, No Blood Throat/Mouth: Normal Inspection, Normal Oropharynx, No Airway Compromise Head: Atraumatic, Normocephalic Neck: Normal Inspection, Supple, Non-Tender, Full Range of Motion. No: Lymphadenopathy (L), Lymphadenopathy (R) Respiratory/Chest: No Respiratory Distress, Lungs Clear, Normal Breath Sounds, No Accessory Muscle Use, Chest Non-Tender Cardiovascular: Regular Rate, Rhythm, No Murmur GI/Abdominal: Normal Bowel Sounds, Soft, Non-Tender Back Exam: Normal Inspection Extremities: Normal Inspection, No Pedal Edema Neurological: Alert, Oriented, Normal Cognition Psychiatric: Normal Affect, Normal Mood Skin Exam: Warm, Dry, Intact, Normal Color, No Rash Lymphatic: No Adenopathy Course - Vital Signs Last Recorded V/S: Last Vital Signs Temp 97.5 F 08/09/18 01:38 Pulse 82 08/09/18 01:38 Resp 20 08/09/18 01:38 BP 117/40 L 08/09/18 01:38 Pulse Ox 97 08/09/18 01:58 - Orders/Labs/Meds Orders: Active Orders 24 hr Category Date Time Status Chest 2V [CR] Stat Exams 08/09/18 01:52 Ordered - Radiology Interpretation Free Text/Narrative:: Chest x-ray shows bilateral perihilar interstitial thickening suggestive of bronchitis - Re-Assessments/Exams Free Text/Narrative Re-Assessment/Exam: 08/09/18 03:06 Patient afebrile, coughing resolved after Robitussin, patient currently on amoxicillin per PCP. We'll continue amoxicillin and Robitussin, and have patient follow-up in 2 days with PCP. Patient currently wears oxygen at night. Discussed with daughter that having a scented oil diffuser in her bedroom may be exacerbating the situation. She will discontinue use. Departure - Departure Time of Disposition: 03:09 Disposition: Home, Self-Care 01 Condition: Good Clinical Impression: Bronchitis - Discharge Information Instructions: Acute Bronchitis, Adult, [id number] Referrals: Shannon Man PA-C [Physician Nut Roaster] - Additional Instructions: Follow[facility]up at [facility] in next 2-3 days. Return to emergency department sooner if symptoms continue or worsen. Take medication as directed. Discontinue scented oil diffuser in bedroom. - My Orders Last 24 Hours: My Active Orders 08/09/18 01:52 Chest 2V [CR] Stat - Assessment/Plan Last 24 Hours: My Active Orders 08/09/18 01:52 Chest 2V [CR] Stat Assessment:: Bronchitis Plan: Follow-up with PCP
[2018-08-09] MEDS ORDERED: Codeine/guaiFENesin 100-10 MG/5 ML Syrup 5 ML Cup PO ONE (02:34)
[2018-08-09] MEDS ORDERED: predniSONE 20 MG Tab PO ONE (03:10)
--- NOTE | 2018-08-09 07:52 | CR ---
[id number] RAD/RAD Chest PA And Lateral EXAM: RAD Chest PA And Lateral CLINICAL DATA: PERSISTENT COUGH COMPARISON: CORRELATION IS MADE WITH THE EXAM OF JULY 23, 2018. FINDINGS: There is no pneumonia or edema. There appears to be bilateral paratracheal fullness. Consider contrast CT chest at some point. The cardiomediastinal contour is stable. IMPRESSION: QUESTION OF THORACIC INLET PATHOLOGY. CONSIDER CONTRAST CT CHEST. NO PNEUMONIA OR EDEMA. Otilio Ann MD 08/09/18 0751 Thank you for allowing us to participate in the care of your patient.
== END 2018-08-09 03:50 | disposition home or self-care (01) ==
LOC: KA.ED 01:32
DX: J40 Bronchitis, not specified as acute or chronic (principal); I25.2 Old myocardial infarction; E11.9 Type 2 diabetes mellitus without complications; Z88.5 Allergy status to narcotic agent; Z88.2 Allergy status to sulfonamides; Z79.82 Long term (current) use of aspirin; Z79.899 Other long term (current) drug therapy
CPT/HCPCS: 71046; 99284-25; A9270-GY

== ENCOUNTER 2019-01-11 05:17 | Emergency (ER) | payer MEDICARE, OTHER ==
[2019-01-11] MEDS ORDERED: Aspirin 81 MG Tab.Chew ONE (05:20)
[2019-01-11] MEDS ORDERED: Aspirin 81 MG Tab.Chew PO ONE (05:21)
[2019-01-11] MEDS ORDERED: Sodium Chloride 0.9% 1,000 ML ONE (05:37)
[2019-01-11] MEDS ORDERED: Sodium Chloride 0.9% 1,000 ML IV SCH ×2 (05:45→06:00)
[2019-01-11] MEDS ORDERED: Sodium Chloride 0.9% 10 ML Syringe FLUSH PRN (05:55)
--- NOTE | 2019-01-11 06:19 | EDM.PDOC ---
ED HPI GENERAL MEDICAL PROBLEM - General Chief Complaint: Cardiovascular Problem Stated Complaint: chest pain Time Seen by Provider: 01/11/19 05:30 Source of Information: Reports: Patient, Family (daughter) History Limitations: Reports: Altered Mental Status (Dementia) - History of Present Illness INITIAL COMMENTS - FREE TEXT/NARRATIVE: 88-year-old female is brought in by ambulance for evaluation of chest pain. Patient has a dementia but her daughter accompanies with her. As she is a fairly poor historian due to her dementia. Daughter stated that she did complain of some chest pain more over to the right side of the chest yesterday but this seemed to resolve fairly quickly. They were fairly active yesterday driving up to [place]. She will woke her up this morning and once again complaining of chest pain and thought this should probably be evaluated. 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 She's not complaining of shortness of breath. She's not in any distress. She is conversive. She was given 1 nitroglycerin by EMS. She states she now has a headache. She was given some Tylenol at home prior to going to the emergency room. She lives at home with her daughter who does her care for her. She ambulates with a walker. They do have home health care weekly. She does have high blood pressure and is on diabetic on oral medication. She is seen by the [facility] and [place]. Onset: Unknown/Unsure Duration: Improving Location: Reports: Chest Quality: Reports: Ache Severity: Mild Improves with: Reports: Medication Worsens with: Reports: None Associated Symptoms: Reports: Chest Pain, Headaches. Denies: Cough, Diaphoresis , Fever/Chills, Nausea/Vomiting, Shortness of Breath, Syncope Treatments CAN TENDER: Reports: Acetaminophen, Nitroglycerin - Related Data Allergies Allergy/AdvReac Type Severity Reaction Status Date / Time morphine Allergy Unknown Cannot Verified 08/09/18 01:40 Remember Sulfa (Sulfonamide Allergy Unknown Cannot Verified 08/09/18 01:40 Antibiotics) Remember Home Meds: Home Meds ALPRAZolam [Alprazolam] 0.25 mg PO BID PRN 04/30/13 [History] Aspirin [Halfprin] 81 mg PO BEDTIME 04/30/13 [History] Metoprolol Tartrate [Lopressor] 25 mg PO BID 04/30/13 [History] Omeprazole 20 mg PO ACBREAKFAST 04/30/13 [History] metFORMIN [Glucophage] 1,000 mg PO BIDMEALS 05/02/13 [History] Levothyroxine 125 mcg PO ACBREAKFAST 01/13/15 [History] Sertraline HCl 125 mg PO BEDTIME 04/07/16 [History] Magnesium Oxide 500 mg PO DAILY 06/07/16 [History] Timolol Maleate [Timoptic 0.5% Ophth Soln] 1 drop EYEBOTH BID 06/07/16 [History] Cetirizine [ZyrTEC] 10 mg PO DAILY PRN 04/17/17 [History] Montelukast [Singulair] 10 mg PO DAILY 08/09/18 [History] Cyanocobalamin (Vitamin B-12) [Vitamin B-12] 1,000 mcg PO DAILY 01/11/19 [ History] Docusate Sodium [Colace] 100 mg PO BID 01/11/19 [History] Krill Oil 1 tab PO DAILY 01/11/19 [History] glipiZIDE [Glipizide Xl] 2.5 mg PO DAILY 01/11/19 [History] Past Medical History HEENT History: Reports: Hard of Hearing, Impaired Vision Cardiovascular History: Reports: High Cholesterol, Hypertension, [place] Respiratory History: Reports: COPD, SOB Other Respiratory History: on home O2 Gastrointestinal History: Reports: Chronic Constipation, GERD Genitourinary History: Reports: Urinary Incontinence 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: Musculoskeletal History: Reports: Arthritis, Other (See Below) Other Musculoskeletal History: chronic knee pain Neurological History: Reports: Headaches, Chronic Psychiatric History: Reports: Anxiety Endocrine/Metabolic History: Reports: Diabetes, Type II, Hypothyroidism Hematologic History: Reports: Anemia, B12 Deficiency Oncologic (Cancer) History: Reports: Uterine - Infectious Disease History Infectious Disease History: Reports: Shingles - Past Surgical History GI Surgical History: Reports: Appendectomy Female Surgical History: Reports: Hysterectomy Social & Family History - Family History Family Medical History: Noncontributory - Tobacco Use Smoking Status *Q: Former Smoker Used Tobacco, but Quit: Yes Month/Year Tobacco Last Used: 1999 - Caffeine Use Caffeine Use: Reports: None Caffeine Use Comment: coke once in awhile - Recreational Drug Use Recreational Drug Use: No ED ROS GENERAL - Review of Systems Review Of Systems: ROS reveals no pertinent complaints other than HPI. ED EXAM, GENERAL - Physical Exam Exam: See Below Exam Limited By: Altered Mental Status (Dementia) General Appearance: Alert, WD/WN, No Apparent Distress Eye Exam: Bilateral Eye: EOMI, PERRL Ears: Normal External Exam, Normal Canal, Normal TMs, Hearing Loss Ear Exam: Bilateral Ear: Auricle Normal, Canal Normal, TM normal Nose: Normal Inspection Throat/Mouth: Normal Inspection, Normal Lips, Normal Oropharynx, Normal Voice, No Airway Compromise Head: Atraumatic, Normocephalic Neck: Normal Inspection, Supple, Non-Tender, Full Range of Motion. No: Carotid Bruit Respiratory/Chest: No Respiratory Distress, Lungs Clear Cardiovascular: Normal Peripheral Pulses, Regular Rate, Rhythm, No Murmur Peripheral Pulses: 2+: Carotid (L), Carotid (R), Radial (L), Radial (R), Dorsalis Pedis (L), Dorsalis Pedis (R) GI/Abdominal: Normal Bowel Sounds, Soft, Non-Tender Back Exam: Normal Inspection Extremities: Normal Inspection Neurological: Alert, No Motor/Sensory Deficits Psychiatric: Normal Affect, Normal Mood Skin Exam: Warm, Dry, Intact, Normal Color, No Rash EKG INTERPRETATION EKG Date: 01/11/19 Time: 05:25 Rhythm: NSR Rate (Beats/Min): 85 [place]: LAD-Left [place] Deviation P-Wave: Present QRS: Normal ST-T: Normal QT: Normal Comparison: No Change EKG Interpretation Comments: Normal sinus rhythm Left axis deviation Low-voltage QRS inferior infarct age undetermined, no change from prior EKG Course - Vital Signs Last Recorded V/S: Last Vital Signs Temp 97.2 F 01/11/19 05:25 Pulse 80 01/11/19 06:11 Resp 23 H 01/11/19 06:11 BP 136/49 L 01/11/19 06:11 Pulse Ox 94 L 01/11/19 06:11 - Orders/Labs/Meds Orders: Active Orders 24 hr Category Date Time Status Blood Glucose Check, Bedside [RC] ONETIME Care 01/11/19 05:55 Active EKG Documentation Completion [RC] ASDIRECTED Care 01/11/19 05:55 Active Peripheral IV Care [RC] . DIRECTED Care 01/11/19 05:55 Active Chest 1V Frontal [CR] Stat Exams 01/11/19 05:44 Ordered Sodium Chloride 0.9% [Normal Saline] 1,000 ml Med 01/11/19 06:00 Active IV ASDIRECTED Sodium Chloride 0.9% [Saline Flush] Med 01/11/19 05:55 Active 10 ml FLUSH Q8HR PRN Peripheral IV Insertion Adult [OM.PC] Routine Oth 01/11/19 05:55 Ordered EKG 12 Lead [EK] Routine Ther 01/11/19 05:55 Ordered Medication Orders Sodium Chloride (Normal Saline) 1,000 mls @ 150 mls/hr IV ASDIRECTED TATA Last Admin: 01/11/19 05:56 Dose: 150 mls/hr Sodium Chloride (Saline Flush) 10 ml FLUSH Q8HR PRN PRN Reason: keep vein open Labs: Laboratory Tests 01/11/19 01/11/19 01/11/19 Range/Units 05:35 05:35 05:36 WBC 6.17 (5.00-10.00) 10^3/uL RBC 3.64 L (3.80-5.50) 10^6/uL Hgb 10.6 L (12.0-16.0) g/dL Hct 33.7 L (37.0-47.0) % MCV 92.6 H (82.0-92.0) fL MCH 29.1 (27.0-31.0) pg MCHC 31.5 L (32.0-36.0) g/dL RDW 13.6 (11.5-14.5) % Plt Count 201 (150-400) 10^3/uL MPV 10.2 (7.4-10.4) fL Immature Gran % (Auto) 0.3 (0.0-5.0) % Neut % (Auto) 50.5 (50.0-70.0) % Lymph % (Auto) 37.1 (20.0-40.0) % [place] % (Auto) 8.6 H (2.0-8.0) % Eos % (Auto) 3.2 H (1.0-3.0) % Baso % (Auto) 0.3 (0.0-1.0) % Immature Gran # (Auto) 0.02 (0.00-0.50) 10^3/uL Neut # (Auto) 3.11 (2.50-7.00) 10^3/uL Lymph # (Auto) 2.29 (1.00-4.00) 10^3/uL [place] # (Auto) 0.53 (0.10-0.80) 10^3/uL Eos # (Auto) 0.20 (0.10-0.30) 10^3/uL Baso # (Auto) 0.02 (0.00-0.10) 10^3/uL Sodium 144 (136-145) mmol/L Potassium 4.3 (3.3-5.3) mmol/L Chloride 105 (98-115) mmol/L Carbon Dioxide 31.7 (21.0-32.0) mmol/L Anion Gap 11.6 (5-15) mmol/L BUN 23 (6-25) mg/dL Creatinine 1.05 (0.51-1.17) mg/dL Est Cr Clr Drug Dosing 26.60 mL/min Estimated GFR (MDRD) 49 mL/min Glucose 138 H (75 - 99) mg/dL POC Glucose 141 H (74-106) mg/dl Calcium 8.6 L (8.7-10.3) mg/dL Creatine Kinase 20 L (26-276) U/L CK-MB (CK-2) 0.70 (0.00-4.30) ng/mL Troponin I < 0.04 (0.00-0.070) ng/mL Meds: Medications Generic Name Dose Route Start Last Admin Trade Name Freq PRN Reason Stop Dose Admin Sodium Chloride 1,000 mls @ 150 mls/hr 01/11/19 06:00 01/11/19 05:56 Normal Saline IV 150 mls/hr ASDIRECTED TATA Administration Sodium Chloride 10 ml 01/11/19 05:55 Saline Flush FLUSH Q8HR PRN keep vein open Discontinued Medications Generic Name Dose Route Start Last Admin Trade Name Freq PRN Reason Stop Dose Admin Aspirin 324 mg 01/11/19 05:21 01/11/19 05:22 Aspirin PO 01/11/19 05:22 324 mg ONETIME ONE Administration Aspirin Confirm 01/11/19 05:20 01/11/19 05:29 Aspirin Administered 01/11/19 05:21 Not Given Dose 324 mg .ROUTE .STK-MED ONE Sodium Chloride Confirm 01/11/19 05:37 01/11/19 05:44 Normal Saline Administered 01/11/19 05:38 Not Given Dose 1,000 mls @ as directed .ROUTE .STK-MED ONE Sodium Chloride 1,000 mls @ 150 mls/hr 01/11/19 05:45 Normal Saline IV ASDIRECTED TATA - Re-Assessments/Exams Free Text/Narrative Re-Assessment/Exam: 01/11/19 06:24 Patient currently is resting comfortably IV running normal saline at 150 mL an hour and a right antecubital. She states that the chest pain and headache resolved. Departure - Departure Time of Disposition: 07:00 Disposition: Home, Self-Care 01 Condition: Good Clinical Impression: Atypical chest pain Instructions: Heart Attack, [id number], Chest Wall Pain Forms: ED Department Discharge - My Orders Last 24 Hours: My Active Orders 01/11/19 05:44 Chest 1V Frontal [CR] Stat 01/11/19 05:55 Blood Glucose Check, Bedside [RC] ONETIME EKG Documentation Completion [RC] ASDIRECTED Peripheral IV Care [RC] . DIRECTED Sodium Chloride 0.9% [Saline Flush] 10 ml FLUSH Q8HR PRN Peripheral IV Insertion Adult [OM.PC] Routine EKG 12 Lead [EK] Routine 01/11/19 06:00 Sodium Chloride 0.9% [Normal Saline] 1,000 ml IV ASDIRECTED - Assessment/Plan Last 24 Hours: My Active Orders 01/11/19 05:44 Chest 1V Frontal [CR] Stat 01/11/19 05:55 Blood Glucose Check, Bedside [RC] ONETIME EKG Documentation Completion [RC] ASDIRECTED Peripheral IV Care [RC] . DIRECTED Sodium Chloride 0.9% [Saline Flush] 10 ml FLUSH Q8HR PRN Peripheral IV Insertion Adult [OM.PC] Routine EKG 12 Lead [EK] Routine 01/11/19 06:00 Sodium Chloride 0.9% [Normal Saline] 1,000 ml IV ASDIRECTED Assessment:: Atypical chest pain resolved Headache resolved Plan: 1. Rest 2. Continue with oral hydration 3. Follow-up with your primary care in a week to 10 days 4. Encourage for chewable baby aspirin if recurrent chest pain occurs, and call EMS.
[2019-01-11 06:22] LABS: ANION GAP 11.6 mmol/L (5-15); CHLORIDE,CL 105 mmol/L (98-115); SODIUM,NA 144 mmol/L (136-145)
[2019-01-11 06:59] VITALS: BP 140/53; PULSE 80
--- NOTE | 2019-01-11 08:44 | CR ---
[id number] RAD/RAD Chest PA or AP 1V EXAM: SINGLE VIEW CHEST. INDICATION: CHEST PAIN COMPARISON: CORRELATION IS MADE WITH THE EXAM OF AUGUST 09, 2018 FINDINGS: The lungs are clear The cardiomediastinal contour is stable There is no pneumothorax IMPRESSION: NO ACUTE PROCESS Otilio Ann MD 01/11/19 0843 Thank you for allowing us to participate in the care of your patient.
== END 2019-01-11 07:10 | disposition home or self-care (01) ==
LOC: KA.ED 05:17
DX: R07.89 Other chest pain (principal); I10 Essential (primary) hypertension; I25.2 Old myocardial infarction; J44.9 Chronic obstructive pulmonary disease, unspecified; K21.9 Gastro-esophageal reflux disease without esophagitis; M19.90 Unspecified osteoarthritis, unspecified site; E11.9 Type 2 diabetes mellitus without complications; F41.9 Anxiety disorder, unspecified; E03.9 Hypothyroidism, unspecified; Z86.2 Personal history of diseases of the blood and blood-forming organs and certain disorders involving the immune mechanism; Z87.891 Personal history of nicotine dependence; Z79.84 Long term (current) use of oral hypoglycemic drugs; Z79.899 Other long term (current) drug therapy; Z79.82 Long term (current) use of aspirin; Z88.5 Allergy status to narcotic agent; Z88.2 Allergy status to sulfonamides
CPT/HCPCS: 36415; 71045; 80048; 82550; 82553; 82962; 84484; 85025; 93005; 96360; 99284; 99285-25; A9270-GY; J7030

== ENCOUNTER 2019-03-20 19:31 | Emergency (ER) | payer MEDICARE, OTHER ==
[2019-03-20 19:52] VITALS: PULSE 84
[2019-03-20] MEDS ORDERED: Ondansetron 4 MG Tab.DIS PO ONE (20:12)
[2019-03-20] MEDS ORDERED: Sodium Chloride 0.9% 10 ML Syringe FLUSH PRN (20:13)
--- NOTE | 2019-03-20 20:21 | EDM.PDOC ---
ED HPI GENERAL MEDICAL PROBLEM - General Chief Complaint: Abdominal Pain Stated Complaint: ABDOMINAL PAIN Time Seen by Provider: 03/20/19 20:11 Source of Information: Reports: Patient History Limitations: Reports: No Limitations - History of Present Illness INITIAL COMMENTS - FREE TEXT/NARRATIVE: Patient is an 88-year-old female who presents to the emergency department via EMS secondary to complaint for abdominal pain. Patient states abdominal pain began approximately 1830 this evening following dinner. Abdominal pain has been intermittent over the last couple weeks, but was more severe this evening. Patient also felt nauseous but did not vomit. 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 Onset: Today Onset Date: 03/20/19 Onset Time: 18:30 Duration: Hour(s): Location: Reports: Abdomen Quality: Reports: Ache Severity: Mild Improves with: Reports: None Worsens with: Reports: None Context: Denies: Trauma Associated Symptoms: Reports: Nausea/Vomiting. Denies: Chest Pain, Shortness of Breath Right Upper Abdomen Pain Score (Numeric/FACES): 3 - Related Data Allergies Allergy/AdvReac Type Severity Reaction Status Date / Time morphine Allergy Unknown Cannot Verified 03/20/19 21:15 Remember Sulfa (Sulfonamide Allergy Unknown Cannot Verified 03/20/19 21:15 Antibiotics) Remember Home Meds: Home Meds ALPRAZolam [Alprazolam] 0.25 mg PO BID PRN 04/30/13 [History] Aspirin [Halfprin] 81 mg PO BEDTIME 04/30/13 [History] Metoprolol Tartrate [Lopressor] 25 mg PO BID 04/30/13 [History] Omeprazole 20 mg PO ACBREAKFAST 04/30/13 [History] metFORMIN [Glucophage] 1,000 mg PO BIDMEALS 05/02/13 [History] Levothyroxine 125 mcg PO ACBREAKFAST 01/13/15 [History] Sertraline HCl 125 mg PO BEDTIME 04/07/16 [History] Magnesium Oxide 500 mg PO DAILY 06/07/16 [History] Timolol Maleate [Timoptic 0.5% Ophth Soln] 1 drop EYEBOTH BID 06/07/16 [History] Cetirizine [ZyrTEC] 10 mg PO DAILY PRN 04/17/17 [History] Montelukast [Singulair] 10 mg PO DAILY 08/09/18 [History] Cyanocobalamin (Vitamin B-12) [Vitamin B-12] 1,000 mcg PO DAILY 01/11/19 [ History] Docusate Sodium [Colace] 100 mg PO BID 01/11/19 [History] Krill Oil 1 tab PO DAILY 01/11/19 [History] glipiZIDE [Glipizide Xl] 2.5 mg PO DAILY 01/11/19 [History] Past Medical History HEENT History: Reports: Hard of Hearing, Impaired Vision Cardiovascular History: Reports: High Cholesterol, Hypertension, [place] Respiratory History: Reports: COPD, SOB Other Respiratory History: on home O2 Gastrointestinal History: Reports: Chronic Constipation, GERD Genitourinary History: Reports: Urinary Incontinence 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: Musculoskeletal History: Reports: Arthritis, Other (See Below) Other Musculoskeletal History: chronic knee pain Neurological History: Reports: Headaches, Chronic Psychiatric History: Reports: Anxiety Endocrine/Metabolic History: Reports: Diabetes, Type II, Hypothyroidism Hematologic History: Reports: Anemia, B12 Deficiency Oncologic (Cancer) History: Reports: Uterine - Infectious Disease History Infectious Disease History: Reports: Shingles - Past Surgical History GI Surgical History: Reports: Appendectomy Female Surgical History: Reports: Hysterectomy Social & Family History - Family History Family Medical History: Noncontributory - Caffeine Use Caffeine Use: Reports: None Caffeine Use Comment: coke once in awhile ED ROS GENERAL - Review of Systems Review Of Systems: Comprehensive ROS is negative, except as noted in HPI. Constitutional: Reports: No Symptoms HEENT: Reports: No Symptoms Respiratory: Reports: No Symptoms Cardiovascular: Reports: No Symptoms Endocrine: Reports: No Symptoms GI/Abdominal: Reports: Abdominal Pain, Nausea. Denies: Vomiting : Reports: Incontinence Musculoskeletal: Reports: No Symptoms Skin: Reports: No Symptoms Neurological: Reports: No Symptoms Psychiatric: Reports: No Symptoms Hematologic/Lymphatic: Reports: No Symptoms Immunologic: Reports: No Symptoms ED EXAM, GI/ABD - Physical Exam Exam: See Below Exam Limited By: No Limitations General Appearance: Alert, WD/WN, No Apparent Distress Throat/Mouth: Normal Inspection, Normal Oropharynx, No Airway Compromise Head: Atraumatic, Normocephalic Neck: Normal Inspection, Supple Respiratory/Chest: No Respiratory Distress, Lungs Clear, Normal Breath Sounds Cardiovascular: Regular Rate, Rhythm, No Murmur GI/Abdominal Exam: Normal Bowel Sounds, Soft, No Organomegaly, No Distention, No Abnormal Bruit, No Mass, Tender. No: Distended, Guarding, Rigid, Rebound Back Exam: Normal Inspection. No: CVA Tenderness (L), CVA Tenderness (R) Extremities: Normal Inspection, No Pedal Edema Neurological: Alert, Oriented, Normal Cognition Psychiatric: Normal Affect, Normal Mood Skin Exam: Warm, Dry, Intact, Normal Color, No Rash Lymphatic: No Adenopathy Course - Vital Signs Last Recorded V/S: Last Vital Signs Temp 97.8 F 03/20/19 19:47 Pulse 84 03/20/19 21:30 Resp 18 03/20/19 21:30 BP 133/77 03/20/19 21:30 Pulse Ox 96 03/20/19 21:30 - Orders/Labs/Meds Orders: Active Orders 24 hr Category Date Time Status Peripheral IV Care [RC] . DIRECTED Care 03/20/19 20:13 Ordered Abdomen Pelvis w Cont [CT] Stat Exams 03/20/19 20:21 Ordered Sodium Chloride 0.9% [Normal Saline] 50 ml Med 03/20/19 21:00 Active IV ASDIRECTED Sodium Chloride 0.9% [Saline Flush] Med 03/20/19 20:13 Ordered 10 ml FLUSH Q8HR PRN Peripheral IV Insertion Adult [OM.PC] Routine Oth 03/20/19 20:13 Ordered Medication Orders Sodium Chloride (Normal Saline) 50 mls @ 200 mls/hr IV ASDIRECTED [facility] Last Admin: 03/20/19 21:23 Dose: 200 mls/hr Sodium Chloride (Saline Flush) 10 ml FLUSH Q8HR PRN PRN Reason: keep vein open Last Admin: 03/20/19 21:35 Dose: 10 ml Labs: Laboratory Tests 03/20/19 03/20/19 03/20/19 Range/Units 20:03 20:03 20:03 WBC 5.26 (5.00-10.00) 10^3/uL RBC 3.87 (3.80-5.50) 10^6/uL Hgb 11.1 L (12.0-16.0) g/dL Hct 35.9 L (37.0-47.0) % MCV 92.8 H (82.0-92.0) fL MCH 28.7 (27.0-31.0) pg MCHC 30.9 L (32.0-36.0) g/dL RDW 13.4 (11.5-14.5) % Plt Count 182 (150-400) 10^3/uL MPV 10.1 (7.4-10.4) fL Sodium 146 H (136-145) mmol/L Potassium 4.5 (3.3-5.3) mmol/L Chloride 104 (98-115) mmol/L Carbon Dioxide 32.0 (21.0-32.0) mmol/L Anion Gap 14.5 (5-15) mmol/L BUN 14 (6-25) mg/dL Creatinine 0.75 (0.51-1.17) mg/dL Est Cr Clr Drug Dosing 37.24 mL/min Estimated GFR (MDRD) > 60 mL/min Glucose 152 H (75 - 99) mg/dL Calcium 9.1 (8.7-10.3) mg/dL Total Bilirubin 0.2 (0.2-1.0) mg/dL AST 19 (15-37) U/L ALT 22 (12-78) U/L Alkaline Phosphatase 68 (46-116) IU/L Total Protein 6.9 (6.4-8.2) g/dL Albumin 3.45 (3.00-4.80) g/dL Lipase 75 (73-393) U/L Specimen Type Urine Color (YELLOW) Urine Appearance (CLEAR) Urine pH (5.0-9.0) Ur Specific [place] (1.005-1.030) Urine Protein (NEGATIVE) mg/dL Urine Glucose (UA) (NEGATIVE) mg/dL Urine Ketones (NEGATIVE) mg/dL Urine Occult Blood (NEGATIVE) Urine Nitrite (NEGATIVE) Urine Bilirubin (NEGATIVE) Urine Urobilinogen (0.2-1.0) E.U./dL Ur Leukocyte Esterase (NEGATIVE) Urine RBC (0-5) /HPF Urine WBC (0-5) /HPF Ur Epithelial Cells /LPF Urine Bacteria (NONE TO FEW) /HPF 03/20/19 Range/Units 20:19 WBC (5.00-10.00) 10^3/uL RBC (3.80-5.50) 10^6/uL Hgb (12.0-16.0) g/dL Hct (37.0-47.0) % MCV (82.0-92.0) fL MCH (27.0-31.0) pg MCHC (32.0-36.0) g/dL RDW (11.5-14.5) % Plt Count (150-400) 10^3/uL MPV (7.4-10.4) fL Sodium (136-145) mmol/L Potassium (3.3-5.3) mmol/L Chloride (98-115) mmol/L Carbon Dioxide (21.0-32.0) mmol/L Anion Gap (5-15) mmol/L BUN (6-25) mg/dL Creatinine (0.51-1.17) mg/dL Est Cr Clr Drug Dosing mL/min Estimated GFR (MDRD) mL/min Glucose (75 - 99) mg/dL Calcium (8.7-10.3) mg/dL Total Bilirubin (0.2-1.0) mg/dL AST (15-37) U/L ALT (12-78) U/L Alkaline Phosphatase (46-116) IU/L Total Protein (6.4-8.2) g/dL Albumin (3.00-4.80) g/dL Lipase (73-393) U/L Specimen Type Urinvoid Urine Color Light yellow (YELLOW) Urine Appearance Slightly cloudy H (CLEAR) Urine pH 6.5 (5.0-9.0) Ur Specific [place] 1.010 (1.005-1.030) Urine Protein 30 H (NEGATIVE) mg/dL Urine Glucose (UA) Negative (NEGATIVE) mg/dL Urine Ketones Negative (NEGATIVE) mg/dL Urine Occult Blood Large H (NEGATIVE) Urine Nitrite Negative (NEGATIVE) Urine Bilirubin Negative (NEGATIVE) Urine Urobilinogen 0.2 (0.2-1.0) E.U./dL Ur Leukocyte Esterase Small H (NEGATIVE) Urine RBC 75-100 H (0-5) /HPF Urine WBC 5-10 H (0-5) /HPF Ur Epithelial Cells Few /LPF Urine Bacteria Few (NONE TO FEW) /HPF Meds: Medications Generic Name Dose Route Start Last Admin Trade Name Freq PRN Reason Stop Dose Admin Sodium Chloride 50 mls @ 200 mls/hr 03/20/19 21:00 03/20/19 21:23 Normal Saline IV 200 mls/hr ASDIRECTED TATA Administration Sodium Chloride 10 ml 03/20/19 20:13 03/20/19 21:35 Saline Flush FLUSH 10 ml Q8HR PRN Administration keep vein open Discontinued Medications Generic Name Dose Route Start Last Admin Trade Name Jade PRN Reason Stop Dose Admin Ceftriaxone Sodium 1 gm 03/20/19 21:28 03/20/19 21:34 Rocephin IVPUSH 03/20/19 21:29 1 gm ONETIME ONE Administration Iopamidol 100 ml 03/20/19 21:00 03/20/19 21:23 [id number] (76%) IV 03/20/19 21:01 75 ml ONETIME ONE Administration Ondansetron HCl 4 mg 03/20/19 20:12 Zofran Odt PO 03/20/19 20:13 ONETIME ONE Ondansetron HCl 4 mg 03/20/19 20:23 03/20/19 20:26 Zofran IVPUSH 03/20/19 20:24 4 mg ONETIME ONE Administration Ondansetron HCl Confirm 03/20/19 20:24 Zofran Administered 03/20/19 20:25 Dose 4 mg .ROUTE .[facility] ONE - Radiology Interpretation Free Text/Narrative:: CT abdomen and pelvis with IV contrast shows nonspecific gastric antrum and duodenal thickening, 2 small pancreatic tail cystic lesions - Re-Assessments/Exams Free Text/Narrative Re-Assessment/Exam: 03/20/19 21:50 Patient afebrile, vital signs stable, nausea and pain resolved. Patient given 1 g Rocephin IV for UTI. Patient will be given Keflex prescription Departure - Departure Time of Disposition: 21:51 Disposition: Home, Self-Care 01 Condition: Good Clinical Impression: Abdominal pain Qualifiers: Abdominal location: generalized Qualified Code(s): R10.84 - Generalized abdominal pain Urinary tract infection Qualifiers: Urinary tract infection type: acute cystitis Hematuria presence: with hematuria Qualified Code(s): N30.01 - Acute cystitis with hematuria - Discharge Information Instructions: Antibiotic Medicine, Adult, [id number], Urinary Tract Infection , Adult, [id number], Abdominal Pain, Adult, [id number] Referrals: Shannon Man PA-C [Primary Care Provider] - Forms: ED Department Discharge Additional Instructions: Follow-up at [facility] on Saturday. Return to emergency department sooner if symptoms continue or worsen. - My Orders Last 24 Hours: My Active Orders 03/20/19 20:13 Peripheral IV Care [RC] . DIRECTED Sodium Chloride 0.9% [Saline Flush] 10 ml FLUSH Q8HR PRN Peripheral IV Insertion Adult [OM.PC] Routine 03/20/19 20:21 Abdomen Pelvis w Cont [CT] Stat 03/20/19 21:00 Sodium Chloride 0.9% [Normal Saline] 50 ml IV ASDIRECTED - Assessment/Plan Last 24 Hours: My Active Orders 03/20/19 20:13 Peripheral IV Care [RC] . DIRECTED Sodium Chloride 0.9% [Saline Flush] 10 ml FLUSH Q8HR PRN Peripheral IV Insertion Adult [OM.PC] Routine 03/20/19 20:21 Abdomen Pelvis w Cont [CT] Stat 03/20/19 21:00 Sodium Chloride 0.9% [Normal Saline] 50 ml IV ASDIRECTED Assessment:: Abdominal pain/UTI Plan: Follow-up with PCP
[2019-03-20] MEDS ORDERED: Ondansetron 4 MG/2 ML SDV IVPUSH ONE (20:23)
[2019-03-20] MEDS ORDERED: Ondansetron 4 MG/2 ML SDV ONE (20:24)
[2019-03-20 20:48] LABS: ANION GAP 14.5 mmol/L (5-15); CHLORIDE,CL 104 mmol/L (98-115); SODIUM,NA 146 mmol/L (136-145)
[2019-03-20] MEDS ORDERED: Iopamidol 755 Mg/ML 100 ML Bottle IV ONE (21:00)
[2019-03-20] MEDS ORDERED: Sodium Chloride 0.9% 50 ML IV SCH (21:00)
[2019-03-20] MEDS ORDERED: cefTRIAXone 1 GM Vial IVPUSH ONE (21:28)
[2019-03-20 21:41] VITALS: BP 133/77
--- NOTE | 2019-03-21 07:49 | CT ---
[id number] CT/CT Abdomen Pelvis W IV EXAM: CT Abdomen Pelvis W IV CLINICAL DATA: ABD PAIN COMPARISON STUDY: CT from 2013. FINDINGS: 3 mm solid noncalcified subpleural left lower lobe nodule (series 2 image 16). 5 mm hypodense structure in the spleen. Finding is nonspecific and too small to characterize. 2 closely approximated cystic masses in the body of the pancreas measuring up to 8 mm in diameter. 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 No ductal dilation or suspicious pancreatic lesion. Liver, gallbladder, adrenal glands, and kidneys are unremarkable. No evidence of urinary tract obstruction. Urinary bladder is unremarkable. Possible wall thickening throughout the duodenum. Small bowel is otherwise unremarkable. Negative for colitis or diverticulitis. No lymphadenopathy, free fluid, or fluid collections. Scattered changes of spondylosis the spine. No fracture or osseous lesion. IMPRESSION: Possible wall thickening in the duodenum. Findings could represent duodenitis. Consider endoscopy for further evaluation as clinically warranted. Otherwise, no significant abnormality identified in the abdomen or pelvis, described above. Fer Claros MD 03/21/19 0748 Thank you for allowing us to participate in the care of your patient.
== END 2019-03-20 22:05 | disposition home or self-care (01) ==
LOC: KA.ED 19:31
DX: N30.01 Acute cystitis with hematuria (principal); R10.84 Generalized abdominal pain; F41.9 Anxiety disorder, unspecified; I10 Essential (primary) hypertension; I25.2 Old myocardial infarction; J44.9 Chronic obstructive pulmonary disease, unspecified; E11.9 Type 2 diabetes mellitus without complications; E03.9 Hypothyroidism, unspecified; Z79.82 Long term (current) use of aspirin; Z79.899 Other long term (current) drug therapy; Z79.84 Long term (current) use of oral hypoglycemic drugs
CPT/HCPCS: 74177; 80053; 81001; 83690; 85027; 87086; 96374; 96375; 99284; J0696; J2405; J7050; Q9967

== ENCOUNTER 2019-04-03 19:05 | Observation (INO) | payer MEDICARE, OTHER ==
[2019-04-03] MEDS ORDERED: Sodium Chloride 0.9% 10 ML Syringe FLUSH PRN (20:44)
[2019-04-03 20:46] LABS: ANION GAP 13.1 mmol/L (5-15); CHLORIDE,CL 99 mmol/L (98-115); SODIUM,NA 139 mmol/L (136-145)
[2019-04-03] MEDS ORDERED: cefTRIAXone 2 GM Vial IVPUSH SCH (21:00)
[2019-04-03] MEDS ORDERED: Cetirizine 10 MG Tab PO PRN (21:03)
[2019-04-03] MEDS ORDERED: ALPRAZolam 0.25 MG Tab PO PRN (21:03)
--- NOTE | 2019-04-03 21:14 | EDM.PDOC ---
ED HPI GENERAL MEDICAL PROBLEM - General Chief Complaint: General Stated Complaint: BLOOD IN URINE Time Seen by Provider: 04/03/19 19:30 Source of Information: Reports: Family History Limitations: Reports: Altered Mental Status (Alzheimer's dementia) - History of Present Illness INITIAL COMMENTS - FREE TEXT/NARRATIVE: 88yo female is brought into emergency room with kirstin blood in her urine. She is brought in by her daughter. They noticed that there is significant amount of blood-tinged in her urine today. She's not had any fevers. She is seen by her primary care provider 48 hours ago and had a catheter UA which per the daughter' s report was normal. Daughter states that she does has primary care for her mother who has Alzheimer's dementia. He has been drinking fluids if feel fairly well. She's been complaining of some mild pelvic discomfort. Onset: Today Onset Date: 04/03/19 Duration: Hour(s): Location: Reports: Pelvis Quality: Reports: Burning Severity: Mild Improves with: Reports: None Worsens with: Reports: None Associated Symptoms: Denies: Fever/Chills, Nausea/Vomiting Perineal Area Pain Score (Numeric/FACES): 5 - Related Data Allergies Allergy/AdvReac Type Severity Reaction Status Date / Time morphine Allergy Unknown Cannot Verified 04/03/19 19:48 Remember Sulfa (Sulfonamide Allergy Unknown Cannot Verified 04/03/19 19:48 Antibiotics) Remember Home Meds: Home Meds ALPRAZolam [Alprazolam] 0.25 mg PO BID PRN 04/30/13 [History] Aspirin [Halfprin] 81 mg PO BEDTIME 04/30/13 [History] Metoprolol Tartrate [Lopressor] 25 mg PO BID 04/30/13 [History] Omeprazole 20 mg PO ACBREAKFAST 04/30/13 [History] metFORMIN [Glucophage] 1,000 mg PO BIDMEALS 05/02/13 [History] Levothyroxine 125 mcg PO ACBREAKFAST 01/13/15 [History] Sertraline HCl 125 mg PO BEDTIME 04/07/16 [History] Magnesium Oxide 500 mg PO DAILY 06/07/16 [History] Timolol Maleate [Timoptic 0.5% Ophth Soln] 1 drop EYEBOTH BID 06/07/16 [History] Cetirizine [ZyrTEC] 10 mg PO DAILY PRN 04/17/17 [History] Montelukast [Singulair] 10 mg PO DAILY 08/09/18 [History] Cyanocobalamin (Vitamin B-12) [Vitamin B-12] 1,000 mcg PO DAILY 01/11/19 [ History] Docusate Sodium [Colace] 100 mg PO BID 01/11/19 [History] Krill Oil 1 tab PO DAILY 01/11/19 [History] glipiZIDE [Glipizide Xl] 2.5 mg PO DAILY 01/11/19 [History] Past Medical History HEENT History: Reports: Hard of Hearing, Impaired Vision Cardiovascular History: Reports: High Cholesterol, Hypertension, NC Respiratory History: Reports: COPD, SOB Other Respiratory History: on home O2 at night (2.5L) Gastrointestinal History: Reports: Chronic Constipation, GERD, Hemorrhoids Genitourinary History: Reports: Urinary Incontinence, UTI, Recurrent Other Genitourinary History: blood in urine (Mar 2019) 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: Musculoskeletal History: Reports: Arthritis, Other (See Below) Other Musculoskeletal History: chronic knee pain Neurological History: Reports: Headaches, Chronic Psychiatric History: Reports: Anxiety Endocrine/Metabolic History: Reports: Diabetes, Type II, Hypothyroidism Hematologic History: Reports: Anemia, B12 Deficiency Oncologic (Cancer) History: Reports: Uterine - Infectious Disease History Infectious Disease History: Reports: Shingles - Past Surgical History GI Surgical History: Reports: Appendectomy Female Surgical History: Reports: Hysterectomy Social & Family History - Family History Family Medical History: Noncontributory - Tobacco Use Smoking Status *Q: Former Smoker Years of Tobacco use: 30 Used Tobacco, but Quit: No - Caffeine Use Caffeine Use: Reports: None Caffeine Use Comment: coke once in awhile - Recreational Drug Use Recreational Drug Use: No ED ROS GENERAL - Review of Systems Review Of Systems: Unable To Obtain Reason Not Obtained: Alzheimer's dementia ED EXAM, GENERAL - Physical Exam Exam: See Below Exam Limited By: Altered Mental Status General Appearance: Alert, No Apparent Distress, Anxious, Obese Eye Exam: Bilateral Eye: EOMI, PERRL Ears: Hearing Grossly Normal, Normal TMs Nose: Normal Inspection Throat/Mouth: Normal Inspection, Normal Oropharynx, Normal Voice, No Airway Compromise Head: Atraumatic, Normocephalic Neck: Normal Inspection, Supple, Non-Tender, Full Range of Motion. No: Lymphadenopathy (L), Lymphadenopathy (R) Respiratory/Chest: No Respiratory Distress, Lungs Clear, Normal Breath Sounds Cardiovascular: Regular Rate, Rhythm Peripheral Pulses: 2+: Dorsalis Pedis (L), Dorsalis Pedis (R) GI/Abdominal: Normal Bowel Sounds, Soft, Non-Tender (Female) Exam: Normal External Exam, Other (Strong urea smell coming from patient's groin). No: Vaginal Bleeding, Vaginal Discharge Rectal (Female) Exam: Normal Exam, Hemorrhoids Back Exam: Normal Inspection Extremities: Normal Inspection, No Pedal Edema, Normal Capillary Refill Neurological: Alert, Confused (Baseline confusion) Psychiatric: Anxious Skin Exam: Warm, Dry, Intact, Normal Color, No Rash Lymphatic: No Adenopathy Course - Vital Signs Last Recorded V/S: Last Vital Signs Temp 98.6 F 04/03/19 19:32 Pulse 100 04/03/19 19:32 Resp 28 H 04/03/19 19:32 BP 149/60 H 04/03/19 19:32 Pulse Ox 91 L 04/03/19 19:32 - Orders/Labs/Meds Orders: Active Orders 24 hr Category Date Time Status Patient Status [ADT] Routine ADT 04/03/19 21:01 Active Height and Weight [RC] DAILY Care 04/03/19 21:06 Active Intake and Output [RC] QSHIFT Care 04/03/19 21:06 Active Peripheral IV Care [RC] . DIRECTED Care 04/03/19 20:45 Active Vital Signs [RC] Q4H Care 04/03/19 21:01 Active Vital Signs [RC] Q4H Care 04/03/19 21:06 Active Regular Diet [DIET] Diet 04/03/19 Breakfast Active CBC WITH AUTO DIFF [HEME] AM Lab 04/04/19 05:11 Ordered CULTURE URINE [RM] Stat Lab 04/03/19 19:49 Received UA W/MICROSCOPIC [URIN] AM Lab 04/04/19 05:11 Ordered ALPRAZolam [Xanax] Med 04/03/19 21:03 Active 0.25 mg PO BID PRN Aspirin [Halfprin] Med 04/04/19 21:00 Active 81 mg PO BEDTIME Cetirizine [ZyrTEC] Med 04/03/19 21:03 Active 10 mg PO DAILY PRN Cyanocobalamin (Vitamin B-12) [Vitamin B-12] Med 04/04/19 09:00 Active 1,000 mcg PO DAILY Docusate Sodium [Colace] Med 04/04/19 09:00 Active 100 mg PO BID Krill Oil [Krill Oil] Med 04/04/19 09:00 Active 1 tab PO DAILY Levothyroxine [Levothyroxine] Med 04/04/19 07:30 Active 125 mcg PO ACBREAKFAST Magnesium Oxide Med 04/04/19 09:00 Active 500 mg PO DAILY Metoprolol Tartrate [Lopressor] Med 04/04/19 09:00 Active 25 mg PO BID Montelukast [Singulair] Med 04/04/19 09:00 Active 10 mg PO DAILY Omeprazole Med 04/04/19 07:30 Active 20 mg PO ACBREAKFAST Sodium Chloride 0.9% [Normal Saline] 1,000 ml Med 04/03/19 21:00 Active IV ASDIRECTED Sodium Chloride 0.9% [Saline Flush] Med 04/03/19 20:44 Active 10 ml FLUSH Q8HR PRN cefTRIAXone [Rocephin] Med 04/03/19 21:00 Active 2 gm IVPUSH Q24H Peripheral IV Insertion Adult [OM.PC] Routine Oth 04/03/19 20:15 Ordered Medication Orders Alprazolam (Xanax) 0.25 mg PO BID PRN PRN Reason: Anxiety Aspirin (Halfprin) 81 mg PO BEDTIME TATA Ceftriaxone Sodium (Rocephin) 2 gm IVPUSH Q24H TATA Cetirizine HCl (Zyrtec) 10 mg PO DAILY PRN PRN Reason: Congestion Docusate Sodium (Colace) 100 mg PO BID TATA Sodium Chloride (Normal Saline) 1,000 mls @ 125 mls/hr IV ASDIRECTED TATA Magnesium Oxide (Magnesium Oxide) 500 mg PO DAILY [facility]ATA Metoprolol Tartrate (Lopressor) 25 mg PO BID TATA Montelukast Sodium (Singulair) 10 mg PO DAILY TATA Non-Formulary Medication (Cyanocobalamin (Vitamin B-12) [Vitamin B-12]) 1,000 mcg PO DAILY TATA Non-Formulary Medication (Krill Oil [Krill Oil]) 1 tab PO DAILY TATA Non-Formulary Medication (Levothyroxine [Levothyroxine]) 125 mcg PO ACBREAKFAST TATA Omeprazole (Omeprazole) 20 mg PO ACBREAKFAST TATA Sodium Chloride (Saline Flush) 10 ml FLUSH Q8HR PRN PRN Reason: keep vein open Labs: Laboratory Tests 04/03/19 04/03/19 04/03/19 Range/Units 19:49 20:15 20:15 WBC 12.40 H (5.00-10.00) 10^3/uL RBC 4.02 (3.80-5.50) 10^6/uL Hgb 11.2 L (12.0-16.0) g/dL Hct 36.0 L (37.0-47.0) % MCV 89.6 D (82.0-92.0) fL MCH 27.9 (27.0-31.0) pg MCHC 31.1 L (32.0-36.0) g/dL RDW 13.2 (11.5-14.5) % Plt Count 201 (150-400) 10^3/uL MPV 10.5 H (7.4-10.4) fL Immature Gran % (Auto) 0.2 (0.0-5.0) % Neut % (Auto) 78.1 H (50.0-70.0) % Lymph % (Auto) 12.8 L (20.0-40.0) % Independence % (Auto) 7.1 (2.0-8.0) % Eos % (Auto) 1.6 (1.0-3.0) % Baso % (Auto) 0.2 (0.0-1.0) % Immature Gran # (Auto) 0.02 (0.00-0.50) 10^3/uL Neut # (Auto) 9.69 H (2.50-7.00) 10^3/uL Lymph # (Auto) 1.59 (1.00-4.00) 10^3/uL Independence # (Auto) 0.88 H (0.10-0.80) 10^3/uL Eos # (Auto) 0.20 (0.10-0.30) 10^3/uL Baso # (Auto) 0.02 (0.00-0.10) 10^3/uL Sodium 139 (136-145) mmol/L Potassium 4.8 (3.3-5.3) mmol/L Chloride 99 (98-115) mmol/L Carbon Dioxide 31.7 (21.0-32.0) mmol/L Anion Gap 13.1 (5-15) mmol/L BUN 14 (6-25) mg/dL Creatinine 0.72 (0.51-1.17) mg/dL Est Cr Clr Drug Dosing 38.79 mL/min Estimated GFR (MDRD) > 60 mL/min Glucose 157 H (75 - 99) mg/dL Calcium 9.4 (8.7-10.3) mg/dL Specimen Type Urinvoid Urine Color Brown H (YELLOW) Urine Appearance Turbid H (CLEAR) Urine pH 7.0 (5.0-9.0) Ur Specific Ulmer 1.020 (1.005-1.030) Urine Protein >=300 H (NEGATIVE) mg/dL Urine Glucose (UA) Negative (NEGATIVE) mg/dL Urine Ketones Negative (NEGATIVE) mg/dL Urine Occult Blood Large H (NEGATIVE) Urine Nitrite Positive H (NEGATIVE) Urine Bilirubin Negative (NEGATIVE) Urine Urobilinogen 0.2 (0.2-1.0) E.U./dL Ur Leukocyte Esterase Small H (NEGATIVE) Urine RBC Packed (0-5) /HPF Urine WBC >100 H (0-5) /HPF Ur Epithelial Cells Few /LPF Urine Bacteria Few (NONE TO FEW) /HPF Meds: Medications Generic Name Dose Route Start Last Admin Trade Name Freq PRN Reason Stop Dose Admin Alprazolam 0.25 mg 04/03/19 21:03 Xanax PO BID PRN Anxiety Aspirin 81 mg 04/04/19 21:00 Halfprin PO BEDTIME TATA Ceftriaxone Sodium 2 gm 04/03/19 21:00 Rocephin IVPUSH Q24H TATA Cetirizine HCl 10 mg 04/03/19 21:03 Zyrtec PO DAILY PRN Congestion Docusate Sodium 100 mg 04/04/19 09:00 Colace PO BID [facility] Sodium Chloride 1,000 mls @ 125 mls/hr 04/03/19 21:00 Normal Saline IV ASDIRECTED TATA Magnesium Oxide 500 mg 04/04/19 09:00 Magnesium Oxide PO DAILY [facility] Metoprolol Tartrate 25 mg 04/04/19 09:00 Lopressor PO BID [facility] Montelukast Sodium 10 mg 04/04/19 09:00 Singulair PO DAILY TATA Non-Formulary Medication 1,000 mcg 04/04/19 09:00 Cyanocobalamin (Vitamin B-12) [Vitamin B-12] PO DAILY TATA Non-Formulary Medication 1 tab 04/04/19 09:00 Krill Oil [Krill Oil] PO DAILY TATA Non-Formulary Medication 125 mcg 04/04/19 07:30 Levothyroxine [Levothyroxine] PO ACBREAKFAST TATA Omeprazole 20 mg 04/04/19 07:30 Omeprazole PO ACBREAKFAST TATA Sodium Chloride 10 ml 04/03/19 20:44 Saline Flush FLUSH Q8HR PRN keep vein open - Re-Assessments/Exams Free Text/Narrative Re-Assessment/Exam: 04/03/19 21:15 Discussed with family we'll place her in observation receive IV fluids and antibiotics as she is not a candidate for doing well outpatient therapy. Departure - Departure Time of Disposition: 21:19 Disposition: Refer to Observation Condition: Fair Clinical Impression: UTI (urinary tract infection), bacterial - Discharge Information Instructions: Urine Culture and Sensitivity Testing, Antibiotic Medicine, Adult , [id number] Referrals: Jovanny Gutierres, [employer] [Primary Care Provider] - - My Orders Last 24 Hours: My Active Orders 04/03/19 19:49 CULTURE URINE [RM] Stat 04/03/19 20:15 Peripheral IV Insertion Adult [OM.PC] Routine 04/03/19 20:44 Sodium Chloride 0.9% [Saline Flush] 10 ml FLUSH Q8HR PRN 04/03/19 20:45 Peripheral IV Care [RC] . DIRECTED 04/03/19 21:00 Sodium Chloride 0.9% [Normal Saline] 1,000 ml IV ASDIRECTED cefTRIAXone [Rocephin] 2 gm IVPUSH Q24H 04/03/19 21:01 Patient Status [ADT] Routine Vital Signs [RC] Q4H 04/03/19 21:03 ALPRAZolam [Xanax] 0.25 mg PO BID PRN Cetirizine [ZyrTEC] 10 mg PO DAILY PRN 04/03/19 21:06 Height and Weight [RC] DAILY Intake and Output [RC] QSHIFT Vital Signs [RC] Q4H 04/03/19 Breakfast Regular Diet [DIET] 04/04/19 05:11 CBC WITH AUTO DIFF [HEME] AM UA W/MICROSCOPIC [URIN] AM 04/04/19 07:30 Levothyroxine [Levothyroxine] 125 mcg PO ACBREAKFAST Omeprazole 20 mg PO ACBREAKFAST 04/04/19 09:00 Cyanocobalamin (Vitamin B-12) [Vitamin B-12] 1,000 mcg PO DAILY Docusate Sodium [Colace] 100 mg PO BID Krill Oil [Krill Oil] 1 tab PO DAILY Magnesium Oxide 500 mg PO DAILY Metoprolol Tartrate [Lopressor] 25 mg PO BID Montelukast [Singulair] 10 mg PO DAILY 04/04/19 21:00 Aspirin [Halfprin] 81 mg PO BEDTIME - Assessment/Plan Last 24 Hours: My Active Orders 04/03/19 19:49 CULTURE URINE [RM] Stat 04/03/19 20:15 Peripheral IV Insertion Adult [OM.PC] Routine 04/03/19 20:44 Sodium Chloride 0.9% [Saline Flush] 10 ml FLUSH Q8HR PRN 04/03/19 20:45 Peripheral IV Care [RC] . DIRECTED 04/03/19 21:00 Sodium Chloride 0.9% [Normal Saline] 1,000 ml IV ASDIRECTED cefTRIAXone [Rocephin] 2 gm IVPUSH Q24H 04/03/19 21:01 Patient Status [ADT] Routine Vital Signs [RC] Q4H 04/03/19 21:03 ALPRAZolam [Xanax] 0.25 mg PO BID PRN Cetirizine [ZyrTEC] 10 mg PO DAILY PRN 04/03/19 21:06 Height and Weight [RC] DAILY Intake and Output [RC] QSHIFT Vital Signs [RC] Q4H 04/03/19 Breakfast Regular Diet [DIET] 04/04/19 05:11 CBC WITH AUTO DIFF [HEME] AM UA W/MICROSCOPIC [URIN] AM 04/04/19 07:30 Levothyroxine [Levothyroxine] 125 mcg PO ACBREAKFAST Omeprazole 20 mg PO ACBREAKFAST 04/04/19 09:00 Cyanocobalamin (Vitamin B-12) [Vitamin B-12] 1,000 mcg PO DAILY Docusate Sodium [Colace] 100 mg PO BID Krill Oil [Krill Oil] 1 tab PO DAILY Magnesium Oxide 500 mg PO DAILY Metoprolol Tartrate [Lopressor] 25 mg PO BID Montelukast [Singulair] 10 mg PO DAILY 04/04/19 21:00 Aspirin [Halfprin] 81 mg PO BEDTIME Assessment:: UTI Leukocytosis with mild neutrophilic shift Plan: 1. Observation 2. IV fluids normal saline run at 125 an hour 3. Rocephin 2 g IV tonight 4. Repeat CBC with differential in the a.m. 5. Repeat UA in a.m. 6. Care transferred over to [facility].
[2019-04-03] MEDS ORDERED: Acetaminophen 325 MG Tab PO PRN (22:21)
[2019-04-03] MEDS ORDERED: Melatonin 3 MG Tab PO PRN (22:22)
[2019-04-03] MEDS ORDERED: cefTRIAXone 1 GM Vial IVPUSH SCH (22:30)
[2019-04-03] MEDS: Metoprolol Tartrate 25 MG Tab PO SCH (22:42)
[2019-04-03] MEDS: Sodium Chloride 0.9% 1,000 ML IV SCH (22:55)
[2019-04-03] MEDS ORDERED: Aspirin 81 MG Tab.EC PO SCH (23:00)
[2019-04-03] MEDS ORDERED: Sertraline 50 MG Tab PO SCH (23:00)
[2019-04-03] MEDS ORDERED: Montelukast 10 MG Tab PO SCH (23:00)
[2019-04-03] MEDS: Timolol Maleate 0.5% Ophth Soln 5 ML Bottle EYEBOTH SCH (23:52)
[2019-04-04] MEDS: Acetaminophen 325 MG Tab PO PRN ×2 (03:29→07:44)
[2019-04-04 07:12] VITALS: BP 127/59; PULSE 88
[2019-04-04] MEDS ORDERED: Omeprazole 20 MG Cap.CR PO SCH (07:30)
[2019-04-04] MEDS ORDERED: Non-Formulary Medication 1 Each (Levothyroxine [Levothyroxine] 125 MCG) PO SCH (07:30)
[2019-04-04] MEDS: Sodium Chloride 0.9% 1,000 ML IV SCH (07:31)
[2019-04-04] MEDS ORDERED: metFORMIN 500 MG Tab PO SCH (08:00)
[2019-04-04] MEDS ORDERED: Non-Formulary Medication 1 Each (Cyanocobalamin (Vitamin B-12) [Vitamin B-12] 1,000 MCG) PO SCH (09:00)
[2019-04-04] MEDS ORDERED: glipiZIDE 2.5 MG Tab.ER PO SCH (09:00)
[2019-04-04] MEDS ORDERED: Docusate Sodium 100 MG Cap PO SCH (09:00)
[2019-04-04] MEDS ORDERED: Magnesium Oxide 500 MG Tab PO SCH (09:00)
[2019-04-04] MEDS ORDERED: KRILL OIL PO SCH (09:00)
[2019-04-04] MEDS ORDERED: Metoprolol Tartrate 25 MG Tab PO SCH (09:00)
[2019-04-04 09:48] LABS: ANION GAP 18.2 mmol/L (5-15); CHLORIDE,CL 104 mmol/L (98-115); SODIUM,NA 149 mmol/L (136-145)
[2019-04-04] MEDS: Metoprolol Tartrate 25 MG Tab PO SCH (14:52)
[2019-04-04] MEDS: Timolol Maleate 0.5% Ophth Soln 5 ML Bottle EYEBOTH SCH (14:53)
--- NOTE | 2019-04-04 17:34 | HP ---
Admission History and Physical/Discharge Summary HISTORY OF PRESENT ILLNESS: This is an 88-year-old female, who was admitted to observation from the emergency room. She was brought to the ER by her daughter who was concerned of a urinary tract infection. She had noted that she had blood-tinged urine throughout the day. She has been noting intermittent incontinence. The patient has been drinking well. She did complain of suprapubic discomfort. The patient was seen in the clinical setting within the previous 48 hours of her ER visit. A cathed UA was completed at that time and was negative. PAST MEDICAL HISTORY: Hyperlipidemia, hypertension, type 2 diabetes, chronic airway obstruction, hypothyroidism, female stress incontinence, anxiety, malaise and fatigue, neoplasm of unspecified nature, genitourinary organs, anemia, history of cardiac dysrhythmias, leg pain of the right, lightheadedness, inner ear dysfunction, B12 deficiency, chronic dermatitis, and left knee pain. PAST SURGICAL HISTORY: Thyroidectomy, appendectomy, tonsillectomy, vaginal hysterectomy. MEDICATIONS: Home medications include; 1. Alprazolam 0.25 b.i.d. p.r.n. 2. Aspirin 81 at bedtime. 3. Lopressor 25 b.i.d. 4. Omeprazole 20 mg a.c. breakfast. 5. Metformin 1000 mg b.i.d. with meals. 6. Levothyroxine 125 mcg a.c. breakfast. 7. Sertraline 125 at bedtime. 8. Magnesium oxide 500 mg daily. 9. Timoptic 0.5% ophthalmic solution one drop b.i.d. 10.Zyrtec 10 mg daily p.r.n. 11.Singulair 10 mg p.o. daily. 12.Vitamin B12 1000 mcg daily. 13.Colace 100 mg b.i.d. 14.Krill oil one tablet daily. 15.Glipizide 2.5 mg daily. ALLERGIES: Include morphine and sulfa. FAMILY HISTORY: Provided by her daughter, which states she is only aware of elevated blood sugars in other family members. SOCIAL HISTORY: The patient does reside with her . Currently, her daughters are providing in-home care for her routinely. REVIEW OF SYSTEMS: HEENT: Negative. RESPIRATORY: She denies cough or congestion. CARDIOVASCULAR: No complaints of chest pain or palpitations. GI: The patient has been eating fair at home. She has not complained of any nausea or vomiting. : The patient does note suprapubic discomfort. Urinary frequency,odor, abnormal coloration. Vaginal odor. MUSCULOSKELETAL: She complains of intermittent back pain. NEUROLOGICAL: History of confusion. INTEGUMENTARY: No concerns of rashes, sores, or moles. PHYSICAL EXAMINATION: GENERAL APPEARANCE: An elderly, nondistressed 88-year-old female. HEENT: Head is normocephalic, conjunctivae are clear, no nasal drainage. RESPIRATORY: Lung sounds are clear to auscultation throughout. Breath sounds are normal. CARDIOVASCULAR: Heart rate and rhythm is regular. S1, S2. ABDOMEN: Soft. There is mild suprapubic tenderness to palpation. BS present. EXTREMITIES: Noted no lower extremity edema. Capillary refill is less than 2 seconds. NEUROLOGICAL: The patient is alert. She does respond to question. Appropriateness of response is intermittent. PSYCHIATRIC: The patient is anxious. ASSESSMENT: Urinary tract infection with positive leukocyte esterase, nitrites on admission to the ER, and packed RBCs and elevated WBCs. PLAN: The patient was admitted to observation. She received normal saline IV fluids at 125 per hour. She received 1 g of Rocephin. CBC was re- evaluated and UA was re-evaluated this a.m. LABS AND DIAGNOSTICS: UA as previously noted, initially on admit. follow up UA this AM. Cultures are pending. Her white count was 12.4. This morning it was 9.45, hemoglobin was 11.2 with a repeat of 9.4 after fluids. It is noted that she does have a diagnosis of anemia. Wet prep was also obtained as the patient was having significant vaginal odor and complaints of discomfort. Her blood sugar this a.m. was 144 mg% per Glucoscan. DISPOSITION: The patient is requesting to be discharged to her home setting as they are having their Denise celebration this evening. Her daughters are in agreement to take her home. They will continue to push fluids and will initiate oral antibiotics of Keflex 500 mg on a t.i.d. basis. They will follow up next Saturday or Saturday for re-evaluation in the clinical setting. A discharge packet was provided to the patient on discharge with all information. Dr. Krzysztof Patel was consulted in this case and does concur with the plan of care. Daughters discussed possible [facility] care placement in the near future. They report in home care is progressively becoming more difficult. Family will further consider options for care of the patient and will readdress during follow up appointments. /[id number]/MODL MTDD
== END 2019-04-04 13:10 | disposition home or self-care (01) ==
LOC: KA.ED 19:05 → KA.MS 21:01
PROVIDERS: ADMIT Physician Assistant; ATTEND Physician Assistant Medical
DX: N39.0 Urinary tract infection, site not specified (principal); I10 Essential (primary) hypertension; E11.9 Type 2 diabetes mellitus without complications; E78.5 Hyperlipidemia, unspecified; E03.9 Hypothyroidism, unspecified; F41.9 Anxiety disorder, unspecified; Z79.82 Long term (current) use of aspirin; Z79.84 Long term (current) use of oral hypoglycemic drugs; Z79.899 Other long term (current) drug therapy; Z88.6 Allergy status to analgesic agent; Z88.2 Allergy status to sulfonamides
CPT/HCPCS: 36415; 80048; 81001; 81003; 82962; 85025; 87086; 87088; 87210; 96361; 96374; 99284; A9270-GY; G0378; J0696; J7030

== ENCOUNTER 2019-04-07 15:40 | Observation (INO) | payer MEDICARE, OTHER ==
[2019-04-07] MEDS ORDERED: Metoclopramide 10 MG/2 ML SDV IVPUSH ONE (15:55)
--- NOTE | 2019-04-07 16:14 | EDM.PDOC ---
ED HPI GENERAL MEDICAL PROBLEM - General Chief Complaint: Gastrointestinal Problem Stated Complaint: abdominal pain Time Seen by Provider: 04/07/19 15:53 Source of Information: Reports: Patient, EMS, EMS Notes Reviewed, Family ( Daughter) History Limitations: Reports: Altered Mental Status (Dementia) - History of Present Illness INITIAL COMMENTS - FREE TEXT/NARRATIVE: Patient is an 88-year-old female who presents to the emergency department via EMS for a complaint of abdominal pain. Patient has dementia and presents with her daughter as the historian. Per daughter, patient was seen here 4 days ago and diagnosed with urinary tract infection. Patient had a 23 hour observation stay in the hospital. Her daughter states that the patient has been constipated and has mild abdominal pain that is worsening daily. Patient was given a rectal suppository by home health nurse yesterday. However, today pain worsened. Abdominal pain is nondescript and diffuse. Patient denies chest pain , shortness of breath, fever, blood in stool, or change in medication. Onset: Gradual Duration: Day(s): Location: Reports: Abdomen Quality: Reports: Other (Not well described) Improves with: Reports: None Worsens with: Reports: None Associated Symptoms: Reports: No Other Symptoms Treatments SPANISHER: Reports: Other (see below) (Rectal suppository yesterday for constipation) - Related Data Allergies Allergy/AdvReac Type Severity Reaction Status Date / Time morphine Allergy Unknown Cannot Verified 04/03/19 19:48 Remember Sulfa (Sulfonamide Allergy Unknown Cannot Verified 04/03/19 19:48 Antibiotics) Remember Home Meds: Home Meds ALPRAZolam [Alprazolam] 0.25 mg PO BID PRN 04/30/13 [History] Aspirin [Halfprin] 81 mg PO BEDTIME 04/30/13 [History] Metoprolol Tartrate [Lopressor] 25 mg PO BID 04/30/13 [History] Omeprazole 20 mg PO ACBREAKFAST 04/30/13 [History] metFORMIN [Glucophage] 500 mg PO BIDMEALS 05/02/13 [History] Levothyroxine 125 mcg PO ACBREAKFAST 01/13/15 [History] Sertraline HCl 125 mg PO BEDTIME 04/07/16 [History] Magnesium Oxide 500 mg PO DAILY 06/07/16 [History] Timolol Maleate [Timoptic 0.5% Ophth Soln] 1 drop EYEBOTH BID 06/07/16 [History] Cetirizine [ZyrTEC] 10 mg PO DAILY 04/17/17 [History] Montelukast [Singulair] 10 mg PO DAILY 08/09/18 [History] Cyanocobalamin (Vitamin B-12) [Vitamin B-12] 1,000 mcg PO DAILY 01/11/19 [ History] Docusate Sodium [Colace] 100 mg PO BID 01/11/19 [History] Krill Oil 1 tab PO DAILY 01/11/19 [History] glipiZIDE [Glipizide Xl] 2.5 mg PO DAILY 01/11/19 [History] Melatonin 5 mg PO BEDTIME PRN 04/03/19 [History] Cephalexin [Keflex] 500 mg PO TID 10 Days #30 capsule 04/04/19 [Rx] Past Medical History HEENT History: Reports: Hard of Hearing, Impaired Vision Cardiovascular History: Reports: High Cholesterol, Hypertension, [place] Respiratory History: Reports: COPD, SOB Other Respiratory History: on home O2 at night (2.5L) Gastrointestinal History: Reports: Chronic Constipation, GERD, Hemorrhoids Genitourinary History: Reports: Urinary Incontinence, UTI, Recurrent Other Genitourinary History: blood in urine (Mar 2019) [employer]ER History: Reports: Musculoskeletal History: Reports: Arthritis, Other (See Below) Other Musculoskeletal History: chronic knee pain Neurological History: Reports: Headaches, Chronic Psychiatric History: Reports: Anxiety Endocrine/Metabolic History: Reports: Diabetes, Type II, Hypothyroidism Hematologic History: Reports: Anemia, B12 Deficiency Oncologic (Cancer) History: Reports: Uterine - Infectious Disease History Infectious Disease History: Reports: Shingles - Past Surgical History GI Surgical History: Reports: Appendectomy Female Surgical History: Reports: Hysterectomy Social & Family History - Family History Family Medical History: Noncontributory - Caffeine Use Caffeine Use: Reports: None Caffeine Use Comment: coke once in awhile ED ROS GENERAL - Review of Systems Review Of Systems: Comprehensive ROS is negative, except as noted in HPI. Constitutional: Reports: No Symptoms HEENT: Reports: No Symptoms Respiratory: Reports: No Symptoms Cardiovascular: Reports: No Symptoms Endocrine: Reports: No Symptoms GI/Abdominal: Reports: Abdominal Pain, Constipation : Reports: No Symptoms Musculoskeletal: Reports: No Symptoms Skin: Reports: No Symptoms Neurological: Reports: No Symptoms Psychiatric: Reports: No Symptoms Hematologic/Lymphatic: Reports: No Symptoms Immunologic: Reports: No Symptoms ED EXAM, GI/ABD - Physical Exam Exam: See Below Exam Limited By: Altered Mental Status (Dementia mildly confused) General Appearance: Alert, WD/WN, No Apparent Distress Nose: Normal Inspection, Normal Mucosa, No Blood Throat/Mouth: Normal Inspection, Normal Oropharynx, No Airway Compromise Head: Atraumatic, Normocephalic Neck: Normal Inspection, Supple, Non-Tender, Full Range of Motion Respiratory/Chest: No Respiratory Distress, Lungs Clear, Normal Breath Sounds, No Accessory Muscle Use, Chest Non-Tender Cardiovascular: Regular Rate, Rhythm, No Murmur GI/Abdominal Exam: Normal Bowel Sounds, Soft, No Organomegaly, No Abnormal Bruit , No Mass, Tender (Diffusely). No: Distended, Guarding, Rigid, Rebound Back Exam: Normal Inspection. No: CVA Tenderness (L), CVA Tenderness (R) Extremities: Normal Inspection, No Pedal Edema Neurological: Alert, Confused (At baseline/no change per daughter) Psychiatric: Normal Affect, Normal Mood Skin Exam: Warm, Dry, Intact, Normal Color, No Rash Lymphatic: No Adenopathy Course - Vital Signs Last Recorded V/S: Last Vital Signs Temp 98.0 F 04/07/19 15:54 Pulse 87 04/07/19 15:54 Resp 18 04/07/19 15:54 BP 145/75 H 04/07/19 15:54 Pulse Ox 91 L 04/07/19 15:54 - Orders/Labs/Meds Orders: Active Orders 24 hr Category Date Time Status Patient Status [ADT] Routine ADT 04/07/19 19:14 Ordered Oxygen Therapy [RC] PRN Care 04/07/19 19:14 Ordered Peripheral IV Care [RC] . DIRECTED Care 04/07/19 15:55 Active VTE/DVT Education [RC] PER UNIT ROUTINE Care 04/07/19 19:14 Ordered Vital Signs [RC] Q4H Care 04/07/19 19:14 Ordered Sodium Chloride 0.9% [Saline Flush] Med 04/07/19 15:55 Active 10 ml FLUSH Q8HR PRN Peripheral IV Insertion Adult [OM.PC] Routine Oth 04/07/19 15:55 Ordered Resuscitation Status Routine Resus Stat 04/07/19 19:14 Ordered Medication Orders Sodium Chloride (Saline Flush) 10 ml FLUSH Q8HR PRN PRN Reason: keep vein open Labs: Laboratory Tests 04/07/19 04/07/19 04/07/19 Range/Units 16:47 16:47 17:30 WBC 6.26 (5.00-10.00) 10^3/uL RBC 3.57 L (3.80-5.50) 10^6/uL Hgb 9.7 L (12.0-16.0) g/dL Hct 32.3 L (37.0-47.0) % MCV 90.5 (82.0-92.0) fL MCH 27.2 (27.0-31.0) pg MCHC 30.0 L (32.0-36.0) g/dL RDW 13.1 (11.5-14.5) % Plt Count 223 (150-400) 10^3/uL MPV 10.2 (7.4-10.4) fL Immature Gran % (Auto) 0.2 (0.0-5.0) % Neut % (Auto) 61.2 (50.0-70.0) % Lymph % (Auto) 24.0 (20.0-40.0) % Esmeralda % (Auto) 10.1 H (2.0-8.0) % Eos % (Auto) 4.3 H (1.0-3.0) % Baso % (Auto) 0.2 (0.0-1.0) % Immature Gran # (Auto) 0.01 (0.00-0.50) 10^3/uL Neut # (Auto) 3.84 (2.50-7.00) 10^3/uL Lymph # (Auto) 1.50 (1.00-4.00) 10^3/uL Esmeralda # (Auto) 0.63 (0.10-0.80) 10^3/uL Eos # (Auto) 0.27 (0.10-0.30) 10^3/uL Baso # (Auto) 0.01 (0.00-0.10) 10^3/uL Sodium 145 (136-145) mmol/L Potassium 4.0 (3.3-5.3) mmol/L Chloride 105 (98-115) mmol/L Carbon Dioxide 28.7 (21.0-32.0) mmol/L Anion Gap 15.3 H (5-15) mmol/L BUN 14 (6-25) mg/dL Creatinine 0.68 (0.51-1.17) mg/dL Est Cr Clr Drug Dosing 41.08 mL/min Estimated GFR (MDRD) > 60 mL/min Glucose 86 (75 - 99) mg/dL POC Glucose (74-106) mg/dl Calcium 8.4 L (8.7-10.3) mg/dL Total Bilirubin 0.2 (0.2-1.0) mg/dL AST 15 (15-37) U/L ALT 20 (12-78) U/L Alkaline Phosphatase 58 (46-116) IU/L Total Protein 6.4 (6.4-8.2) g/dL Albumin 2.96 L (3.00-4.80) g/dL Lipase 57 L (73-393) U/L Specimen Type Urinvoid Urine Color Yellow (YELLOW) Urine Appearance Clear (CLEAR) Urine pH 5.5 (5.0-9.0) Ur Specific [place] 1.015 (1.005-1.030) Urine Protein Negative (NEGATIVE) mg/dL Urine Glucose (UA) 250 H (NEGATIVE) mg/dL Urine Ketones Negative (NEGATIVE) mg/dL Urine Occult Blood Trace-intact H (NEGATIVE) Urine Nitrite Positive H (NEGATIVE) Urine Bilirubin Negative (NEGATIVE) Urine Urobilinogen 0.2 (0.2-1.0) E.U./dL Ur Leukocyte Esterase Small H (NEGATIVE) Urine RBC 5-10 H (0-5) /HPF Urine WBC >100 H (0-5) /HPF Ur Epithelial Cells Rare /LPF Urine Bacteria Many H (NONE TO FEW) /HPF 04/07/19 Range/Units 18:17 WBC (5.00-10.00) 10^3/uL RBC (3.80-5.50) 10^6/uL Hgb (12.0-16.0) g/dL Hct (37.0-47.0) % MCV (82.0-92.0) fL MCH (27.0-31.0) pg MCHC (32.0-36.0) g/dL RDW (11.5-14.5) % Plt Count (150-400) 10^3/uL MPV (7.4-10.4) fL Immature Gran % (Auto) (0.0-5.0) % Neut % (Auto) (50.0-70.0) % Lymph % (Auto) (20.0-40.0) % Esmeralda % (Auto) (2.0-8.0) % Eos % (Auto) (1.0-3.0) % Baso % (Auto) (0.0-1.0) % Immature Gran # (Auto) (0.00-0.50) 10^3/uL Neut # (Auto) (2.50-7.00) 10^3/uL Lymph # (Auto) (1.00-4.00) 10^3/uL Esmeralda # (Auto) (0.10-0.80) 10^3/uL Eos # (Auto) (0.10-0.30) 10^3/uL Baso # (Auto) (0.00-0.10) 10^3/uL Sodium (136-145) mmol/L Potassium (3.3-5.3) mmol/L Chloride (98-115) mmol/L Carbon Dioxide (21.0-32.0) mmol/L Anion Gap (5-15) mmol/L BUN (6-25) mg/dL Creatinine (0.51-1.17) mg/dL Est Cr Clr Drug Dosing mL/min Estimated GFR (MDRD) mL/min Glucose (75 - 99) mg/dL POC Glucose 112 H (74-106) mg/dl Calcium (8.7-10.3) mg/dL Total Bilirubin (0.2-1.0) mg/dL AST (15-37) U/L ALT (12-78) U/L Alkaline Phosphatase (46-116) IU/L Total Protein (6.4-8.2) g/dL Albumin (3.00-4.80) g/dL Lipase (73-393) U/L Specimen Type Urine Color (YELLOW) Urine Appearance (CLEAR) Urine pH (5.0-9.0) Ur Specific [place] (1.005-1.030) Urine Protein (NEGATIVE) mg/dL Urine Glucose (UA) (NEGATIVE) mg/dL Urine Ketones (NEGATIVE) mg/dL Urine Occult Blood (NEGATIVE) Urine Nitrite (NEGATIVE) Urine Bilirubin (NEGATIVE) Urine Urobilinogen (0.2-1.0) E.U./dL Ur Leukocyte Esterase (NEGATIVE) Urine RBC (0-5) /HPF Urine WBC (0-5) /HPF Ur Epithelial Cells /LPF Urine Bacteria (NONE TO FEW) /HPF Meds: Medications Generic Name Dose Route Start Last Admin Trade Name Freq PRN Reason Stop Dose Admin Sodium Chloride 10 ml 04/07/19 15:55 Saline Flush FLUSH Q8HR PRN keep vein open Discontinued Medications Generic Name Dose Route Start Last Admin Trade Name Freq PRN Reason Stop Dose Admin Ceftriaxone Sodium 1 gm 04/07/19 19:14 Rocephin IVPUSH 04/07/19 19:15 ONETIME ONE Metoclopramide HCl 5 mg 04/07/19 15:55 Reglan IVPUSH 04/07/19 15:56 ONETIME ONE - Radiology Interpretation Free Text/Narrative:: CT abdomen and pelvis showed mild bilateral hydro-nephrosis without obstructing stone or mass - Re-Assessments/Exams Free Text/Narrative Re-Assessment/Exam: 04/07/19 19:32 Patient afebrile, vital signs stable, urine sent for culture. Patient given 1 g Rocephin IV. Discussed case with Dr. Greco. Patient admitted for observation and followed. Departure - Departure Time of Disposition: 19:32 Disposition: Refer to Observation Condition: Fair Clinical Impression: Urinary tract infection Qualifiers: Urinary tract infection type: acute cystitis Hematuria presence: with hematuria Qualified Code(s): N30.01 - Acute cystitis with hematuria - Discharge Information Forms: ED Department Discharge Sepsis Event Note - Focused Exam Vital Signs: Vital Signs Temp Pulse Resp BP Pulse Ox 04/07/19 15:54 98.0 F 87 18 145/75 H 91 L Date Exam was Performed: 04/07/19 Time Exam was Performed: 19:32 - My Orders Last 24 Hours: My Active Orders 04/07/19 15:55 Peripheral IV Care [RC] . DIRECTED Sodium Chloride 0.9% [Saline Flush] 10 ml FLUSH Q8HR PRN Peripheral IV Insertion Adult [OM.PC] Routine 04/07/19 19:14 Patient Status [ADT] Routine Oxygen Therapy [RC] PRN VTE/DVT Education [RC] PER UNIT ROUTINE Vital Signs [RC] Q4H Resuscitation Status Routine - Assessment/Plan Last 24 Hours: My Active Orders 04/07/19 15:55 Peripheral IV Care [RC] . DIRECTED Sodium Chloride 0.9% [Saline Flush] 10 ml FLUSH Q8HR PRN Peripheral IV Insertion Adult [OM.PC] Routine 04/07/19 19:14 Patient Status [ADT] Routine Oxygen Therapy [RC] PRN VTE/DVT Education [RC] PER UNIT ROUTINE Vital Signs [RC] Q4H Resuscitation Status Routine Assessment:: UTI Plan: Admit to observation
--- NOTE | 2019-04-07 16:38 | CT ---
[id number] CT/CT Abdomen Pelvis WO IV EXAM: CT Abdomen Pelvis WO IV CLINICAL DATA: ABDOMEN PAIN. COMPARISON STUDY: March 20, 2019. FINDINGS: Bibasal parenchymal nodularity is again seen. Findings are seen in both lung bases and are similar to the prior examination and nonspecific in etiology. Mild bilateral hydroureteronephrosis extending from the kidneys to the urinary bladder. Findings were not present on the prior examination. No radiographically evident obstructing stone or mass is identified to account for findings in either collecting system. Mineralization in the right kidney inferior pole was not evident on prior examination and is nonspecific in etiology. Numerous vascular calcifications are in the pelvis and are unchanged from the prior examination. Liver, gallbladder, spleen, pancreas, and adrenal glands are unremarkable. Scattered changes of spondylosis the spine. No fracture or osseous lesion. IMPRESSION: Mild bilateral hydroureteronephrosis extending from the kidneys to the urinary bladder, slightly more prominent on the right. No obstructing stone or mass identified on this examination. Findings are nonspecific in etiology. Otherwise, no significant change from the prior examination. Fer Claros MD 04/07/19 [id number] Thank you for allowing us to participate in the care of your patient.
[2019-04-07 17:14] LABS: ANION GAP 15.3 mmol/L (5-15); CHLORIDE,CL 105 mmol/L (98-115); SODIUM,NA 145 mmol/L (136-145)
[2019-04-07] MEDS: Sodium Chloride 0.9% 10 ML Syringe FLUSH PRN ×2 (17:45→20:39)
[2019-04-07] MEDS ORDERED: cefTRIAXone 1 GM Vial IVPUSH ONE (19:14)
[2019-04-07] MEDS ORDERED: ALPRAZolam 0.25 MG Tab PO PRN (21:33)
[2019-04-07] MEDS: Melatonin 3 MG Tab PO PRN (22:31)
[2019-04-07] MEDS: Aspirin 81 MG Tab.EC PO SCH (22:31)
[2019-04-07] MEDS: Metoprolol Tartrate 25 MG Tab PO SCH (23:50)
[2019-04-07] MEDS: metFORMIN 500 MG Tab PO SCH (23:50)
[2019-04-08] MEDS: Acetaminophen 500 MG Tab PO PRN ×3 (06:20→19:04)
[2019-04-08] MEDS: metFORMIN 500 MG Tab PO SCH ×2 (08:13→18:08)
[2019-04-08] MEDS: Cetirizine 10 MG Tab PO SCH (08:54)
[2019-04-08] MEDS: Cyanocobalamin (Vitamin B12) 500 MCG Tab PO SCH (08:56)
[2019-04-08] MEDS: Metoprolol Tartrate 25 MG Tab PO SCH ×2 (08:56→22:17)
--- NOTE | 2019-04-08 16:25 | PCM.HP.2 ---
H&P History of Present Illness - General Date of Service: 04/08/19 Admit Problem/Dx: Admission Diagnosis/Problem Admission Diagnosis/Problem UTI (urinary tract infection) due to urinary indwelling catheter Source of Information: Patient, Old Records, Provider, RN - Related Data Allergies/Adverse Reactions: Allergies Allergy/AdvReac Type Severity Reaction Status Date / Time morphine Allergy Unknown Cannot Verified 04/03/19 19:48 Remember Sulfa (Sulfonamide Allergy Unknown Cannot Verified 04/03/19 19:48 Antibiotics) Remember Home Medications: Home Meds ALPRAZolam [Alprazolam] 0.25 mg PO BID PRN 04/30/13 [History] Aspirin [Halfprin] 81 mg PO BEDTIME 04/30/13 [History] Metoprolol Tartrate [Lopressor] 25 mg PO BID 04/30/13 [History] Omeprazole 20 mg PO ACBREAKFAST 04/30/13 [History] metFORMIN [Glucophage] 500 mg PO BIDMEALS 05/02/13 [History] Levothyroxine 125 mcg PO ACBREAKFAST 01/13/15 [History] Sertraline HCl 125 mg PO BEDTIME 04/07/16 [History] Magnesium Oxide 500 mg PO DAILY 06/07/16 [History] Timolol Maleate [Timoptic 0.5% Ophth Soln] 1 drop EYEBOTH BID 06/07/16 [History] Cetirizine [ZyrTEC] 10 mg PO DAILY 04/17/17 [History] Montelukast [Singulair] 10 mg PO BEDTIME 08/09/18 [History] Cyanocobalamin (Vitamin B-12) [Vitamin B-12] 1,000 mcg PO DAILY 01/11/19 [ History] Docusate Sodium [Colace] 100 mg PO BID 01/11/19 [History] Krill Oil 1 tab PO DAILY 01/11/19 [History] glipiZIDE [Glipizide Xl] 2.5 mg PO DAILY 01/11/19 [History] Melatonin 5 mg PO BEDTIME PRN 04/03/19 [History] Cephalexin [Keflex] 500 mg PO TID 10 Days #30 capsule 04/04/19 [Rx] Past Medical History HEENT History: Reports: Hard of Hearing, Impaired Vision Cardiovascular History: Reports: High Cholesterol, Hypertension, [place] Respiratory History: Reports: COPD, SOB Other Respiratory History: on home O2 at night (2.5L) Gastrointestinal History: Reports: Chronic Constipation, GERD, Hemorrhoids Genitourinary History: Reports: Urinary Incontinence, UTI, Recurrent Other Genitourinary History: blood in urine (Mar 2019) [employer] History: Reports: Musculoskeletal History: Reports: Arthritis, Other (See Below) Other Musculoskeletal History: chronic knee pain Neurological History: Reports: Headaches, Chronic Psychiatric History: Reports: Anxiety Endocrine/Metabolic History: Reports: Diabetes, Type II, Hypothyroidism Hematologic History: Reports: Anemia, B12 Deficiency Oncologic (Cancer) History: Reports: Uterine - Infectious Disease History Infectious Disease History: Reports: Shingles - Past Surgical History GI Surgical History: Reports: Appendectomy Female Surgical History: Reports: Hysterectomy Social & Family History - Family History Family Medical History: Noncontributory - Tobacco Use Smoking Status *Q: Unknown Ever Smoked - Caffeine Use Caffeine Use: Reports: None Caffeine Use Comment: coke once in awhile - Recreational Drug Use Recreational Drug Use: No H&P Review of Systems - Review of Systems: Review Of Systems: See Below General: Reports: No Symptoms HEENT: Reports: No Symptoms Pulmonary: Reports: No Symptoms Cardiovascular: Reports: No Symptoms Gastrointestinal: Reports: Abdominal Pain (Right mid to right lower quadrant), Constipation. Denies: Diarrhea, Decreased Appetite Genitourinary: Reports: Incontinence Musculoskeletal: Reports: No Symptoms Skin: Reports: Pallor Psychiatric: Reports: Confusion Immunologic: Reports: No Symptoms Exam - Exam Exam: See Below - Vital Signs Vital Signs: Last Vital Signs Temp 97.6 F 04/08/19 15:00 Pulse 93 04/08/19 15:00 Resp 20 04/08/19 15:00 BP 170/84 H 04/08/19 15:00 Pulse Ox 97 04/08/19 15:00 Weight: 155 lb 8 oz - Exam Quality Assessment: No: Supplemental Oxygen General: Alert, Oriented, Cooperative. No: Mild Distress HEENT: Mucosa Moist & [place] Neck: Supple Lungs: Clear to Auscultation, Normal Respiratory Effort Cardiovascular: Regular Rate, Regular Rhythm GI/Abdominal Exam: Soft, Tender (Some generalized epigastric pain and slightly off to her right side of her abdomen). No: Distended Rectal (Female) Exam: Deferred Back Exam: No: CVA Tenderness (L), CVA Tenderness (R) Extremities: No: Pedal Edema Peripheral Pulses: 2+: Radial (L), Radial (R) Skin: Warm, Dry Neurological: Cranial Nerves Intact Neuro Extensive - Mental Status: Alert. No: Oriented x3 (Alert, knows the month ) Neuro Extensive - Motor, Sensory, Reflexes: CN II-XII Intact Psychiatric: Alert. No: Anxious - Patient Data Lab Results Last 24 hrs: Laboratory Results - last 24 hr 04/07/19 04/07/19 04/07/19 Range/Units 16:47 16:47 17:30 WBC 6.26 (5.00-10.00) 10^3/uL RBC 3.57 L (3.80-5.50) 10^6/uL Hgb 9.7 L (12.0-16.0) g/dL Hct 32.3 L (37.0-47.0) % MCV 90.5 (82.0-92.0) fL MCH 27.2 (27.0-31.0) pg MCHC 30.0 L (32.0-36.0) g/dL RDW 13.1 (11.5-14.5) % Plt Count 223 (150-400) 10^3/uL MPV 10.2 (7.4-10.4) fL Immature Gran % (Auto) 0.2 (0.0-5.0) % Neut % (Auto) 61.2 (50.0-70.0) % Lymph % (Auto) 24.0 (20.0-40.0) % [place] % (Auto) 10.1 H (2.0-8.0) % Eos % (Auto) 4.3 H (1.0-3.0) % Baso % (Auto) 0.2 (0.0-1.0) % Immature Gran # (Auto) 0.01 (0.00-0.50) 10^3/uL Neut # (Auto) 3.84 (2.50-7.00) 10^3/uL Lymph # (Auto) 1.50 (1.00-4.00) 10^3/uL [place] # (Auto) 0.63 (0.10-0.80) 10^3/uL Eos # (Auto) 0.27 (0.10-0.30) 10^3/uL Baso # (Auto) 0.01 (0.00-0.10) 10^3/uL Sodium 145 (136-145) mmol/L Potassium 4.0 (3.3-5.3) mmol/L Chloride 105 (98-115) mmol/L Carbon Dioxide 28.7 (21.0-32.0) mmol/L Anion Gap 15.3 H (5-15) mmol/L BUN 14 (6-25) mg/dL Creatinine 0.68 (0.51-1.17) mg/dL Est Cr Clr Drug Dosing 41.08 mL/min Estimated GFR (MDRD) > 60 mL/min Glucose 86 (75 - 99) mg/dL POC Glucose (74-106) mg/dl Calcium 8.4 L (8.7-10.3) mg/dL Total Bilirubin 0.2 (0.2-1.0) mg/dL AST 15 (15-37) U/L ALT 20 (12-78) U/L Alkaline Phosphatase 58 (46-116) IU/L Total Protein 6.4 (6.4-8.2) g/dL Albumin 2.96 L (3.00-4.80) g/dL Lipase 57 L (73-393) U/L Specimen Type Urinvoid Urine Color Yellow (YELLOW) Urine Appearance Clear (CLEAR) Urine pH 5.5 (5.0-9.0) Ur Specific [place] 1.015 (1.005-1.030) Urine Protein Negative (NEGATIVE) mg/dL Urine Glucose (UA) 250 H (NEGATIVE) mg/dL Urine Ketones Negative (NEGATIVE) mg/dL Urine Occult Blood Trace-intact H (NEGATIVE) Urine Nitrite Positive H (NEGATIVE) Urine Bilirubin Negative (NEGATIVE) Urine Urobilinogen 0.2 (0.2-1.0) E.U./dL Ur Leukocyte Esterase Small H (NEGATIVE) Urine RBC 5-10 H (0-5) /HPF Urine WBC >100 H (0-5) /HPF Ur Epithelial Cells Rare /LPF Urine Bacteria Many H (NONE TO FEW) /HPF 04/07/19 04/07/19 04/08/19 Range/Units 18:17 21:08 08:12 WBC (5.00-10.00) 10^3/uL RBC (3.80-5.50) 10^6/uL Hgb (12.0-16.0) g/dL Hct (37.0-47.0) % MCV (82.0-92.0) fL MCH (27.0-31.0) pg MCHC (32.0-36.0) g/dL RDW (11.5-14.5) % Plt Count (150-400) 10^3/uL MPV (7.4-10.4) fL Immature Gran % (Auto) (0.0-5.0) % Neut % (Auto) (50.0-70.0) % Lymph % (Auto) (20.0-40.0) % Curry % (Auto) (2.0-8.0) % Eos % (Auto) (1.0-3.0) % Baso % (Auto) (0.0-1.0) % Immature Gran # (Auto) (0.00-0.50) 10^3/uL Neut # (Auto) (2.50-7.00) 10^3/uL Lymph # (Auto) (1.00-4.00) 10^3/uL Curry # (Auto) (0.10-0.80) 10^3/uL Eos # (Auto) (0.10-0.30) 10^3/uL Baso # (Auto) (0.00-0.10) 10^3/uL Sodium (136-145) mmol/L Potassium (3.3-5.3) mmol/L Chloride (98-115) mmol/L Carbon Dioxide (21.0-32.0) mmol/L Anion Gap (5-15) mmol/L BUN (6-25) mg/dL Creatinine (0.51-1.17) mg/dL Est Cr Clr Drug Dosing mL/min Estimated GFR (MDRD) mL/min Glucose (75 - 99) mg/dL POC Glucose 112 H 270 H 140 H (74-106) mg/dl Calcium (8.7-10.3) mg/dL Total Bilirubin (0.2-1.0) mg/dL AST (15-37) U/L ALT (12-78) U/L Alkaline Phosphatase (46-116) IU/L Total Protein (6.4-8.2) g/dL Albumin (3.00-4.80) g/dL Lipase (73-393) U/L Specimen Type Urine Color (YELLOW) Urine Appearance (CLEAR) Urine pH (5.0-9.0) Ur Specific [place] (1.005-1.030) Urine Protein (NEGATIVE) mg/dL Urine Glucose (UA) (NEGATIVE) mg/dL Urine Ketones (NEGATIVE) mg/dL Urine Occult Blood (NEGATIVE) Urine Nitrite (NEGATIVE) Urine Bilirubin (NEGATIVE) Urine Urobilinogen (0.2-1.0) E.U./dL Ur Leukocyte Esterase (NEGATIVE) Urine RBC (0-5) /HPF Urine WBC (0-5) /HPF Ur Epithelial Cells /LPF Urine Bacteria (NONE TO FEW) /HPF 04/08/19 Range/Units 09:28 WBC (5.00-10.00) 10^3/uL RBC (3.80-5.50) 10^6/uL Hgb (12.0-16.0) g/dL Hct (37.0-47.0) % MCV (82.0-92.0) fL MCH (27.0-31.0) pg MCHC (32.0-36.0) g/dL RDW (11.5-14.5) % Plt Count (150-400) 10^3/uL MPV (7.4-10.4) fL Immature Gran % (Auto) (0.0-5.0) % Neut % (Auto) (50.0-70.0) % Lymph % (Auto) (20.0-40.0) % [place] % (Auto) (2.0-8.0) % Eos % (Auto) (1.0-3.0) % Baso % (Auto) (0.0-1.0) % Immature Gran # (Auto) (0.00-0.50) 10^3/uL Neut # (Auto) (2.50-7.00) 10^3/uL Lymph # (Auto) (1.00-4.00) 10^3/uL Curry # (Auto) (0.10-0.80) 10^3/uL Eos # (Auto) (0.10-0.30) 10^3/uL Baso # (Auto) (0.00-0.10) 10^3/uL Sodium (136-145) mmol/L Potassium (3.3-5.3) mmol/L Chloride (98-115) mmol/L Carbon Dioxide (21.0-32.0) mmol/L Anion Gap (5-15) mmol/L BUN (6-25) mg/dL Creatinine (0.51-1.17) mg/dL Est Cr Clr Drug Dosing mL/min Estimated GFR (MDRD) mL/min Glucose (75 - 99) mg/dL POC Glucose 199 H (74-106) mg/dl Calcium (8.7-10.3) mg/dL Total Bilirubin (0.2-1.0) mg/dL AST (15-37) U/L ALT (12-78) U/L Alkaline Phosphatase (46-116) IU/L Total Protein (6.4-8.2) g/dL Albumin (3.00-4.80) g/dL Lipase (73-393) U/L Specimen Type Urine Color (YELLOW) Urine Appearance (CLEAR) Urine pH (5.0-9.0) Ur Specific [place] (1.005-1.030) Urine Protein (NEGATIVE) mg/dL Urine Glucose (UA) (NEGATIVE) mg/dL Urine Ketones (NEGATIVE) mg/dL Urine Occult Blood (NEGATIVE) Urine Nitrite (NEGATIVE) Urine Bilirubin (NEGATIVE) Urine Urobilinogen (0.2-1.0) E.U./dL Ur Leukocyte Esterase (NEGATIVE) Urine RBC (0-5) /HPF Urine WBC (0-5) /HPF Ur Epithelial Cells /LPF Urine Bacteria (NONE TO FEW) /HPF Result Diagrams: 04/07/19 16:47 04/07/19 16:47 Sepsis Event Note - Evaluation Sepsis Screening Result: No Definite Risk - Focused Exam Vital Signs: Vital Signs Temp Pulse Pulse Resp BP BP BP 04/08/19 15:00 97.6 F 93 20 170/84 H 04/08/19 11:00 97.1 F 78 24 H 149/81 H 04/08/19 08:56 105 H 184/91 H 04/08/19 07:00 97.7 F 95 20 155/83 H Pulse Ox 04/08/19 15:00 97 04/08/19 11:00 96 04/08/19 08:56 04/08/19 07:00 98 Date Exam was Performed: 04/08/19 Time Exam was Performed: 17:00 Problem List Initiated/Reviewed/Updated: Yes Orders Last 24hrs: Active Orders 24 hr Category Date Time Status Patient Status [ADT] Routine ADT 04/07/19 19:14 Active Oxygen Therapy [RC] PRN Care 04/07/19 19:14 Active VTE/DVT Education [RC] PER UNIT ROUTINE Care 04/07/19 19:14 Active Vital Signs [RC] 0300,0700,1100,1500,1900,2300 Care 04/07/19 19:14 Active Consult to Case Management/Material Spreader [CONS] Cons 04/08/19 06:44 Active Routine ADA Diabetic [[place] [employer] Diet] [DIET Diet 04/08/19 Breakfast Active ] ALPRAZolam [Xanax] Med 04/07/19 21:33 Active 0.25 mg PO BID PRN Acetaminophen [Tylenol Extra Strength] Med 04/08/19 05:54 Active 1,000 mg PO Q6H PRN Aspirin [Halfprin] Med 04/07/19 21:45 Active 81 mg PO BEDTIME Cetirizine [ZyrTEC] Med 04/08/19 09:00 Active 10 mg PO DAILY Cyanocobalamin (Vitamin B12) [Vitamin B12] Med 04/08/19 09:00 Active 1,000 mcg PO DAILY Melatonin Med 04/07/19 22:02 Active 6 mg PO BEDTIME PRN Metoprolol Tartrate [Lopressor] Med 04/07/19 22:30 Active 25 mg PO BID Sodium Chloride 0.9% [Saline Flush] Med 04/07/19 15:55 Active 10 ml FLUSH Q8HR PRN metFORMIN [Glucophage] Med 04/07/19 23:30 Active 500 mg PO BIDMEALS Peripheral IV Insertion Adult [OM.PC] Routine Oth 04/07/19 15:55 Ordered Resuscitation Status Routine Resus Stat 04/07/19 19:14 Ordered Medication Orders Acetaminophen (Tylenol Extra Strength) 1,000 mg PO Q6H PRN PRN Reason: Pain (moderate 4-6) Last Admin: 04/08/19 12:54 Dose: 1,000 mg Admin: 04/08/19 06:20 Dose: 1,000 mg Alprazolam (Xanax) 0.25 mg PO BID PRN PRN Reason: Anxiety Aspirin (Halfprin) 81 mg PO BEDTIME [facility] Last Admin: 04/07/19 22:31 Dose: 81 mg Cetirizine HCl (Zyrtec) 10 mg PO DAILY [facility] Last Admin: 04/08/19 08:54 Dose: 10 mg Cyanocobalamin (Vitamin B12) 1,000 mcg PO DAILY [facility] Last Admin: 04/08/19 08:56 Dose: 1,000 mcg Melatonin (Melatonin) 6 mg PO BEDTIME PRN PRN Reason: Sleep Last Admin: 04/07/19 22:31 Dose: 6 mg Metformin HCl (Glucophage) 500 mg PO BIDMEALS [facility] Last Admin: 04/08/19 08:13 Dose: 500 mg Admin: 04/07/19 23:50 Dose: 500 mg Metoprolol Tartrate (Lopressor) 25 mg PO BID [facility] Last Admin: 04/08/19 08:56 Dose: 25 mg Admin: 04/07/19 23:50 Dose: 25 mg Sodium Chloride (Saline Flush) 10 ml FLUSH Q8HR PRN PRN Reason: keep vein open Last Admin: 04/07/19 20:39 Dose: 10 ml Admin: 04/07/19 17:45 Dose: 10 ml Assessment/Plan Comment:: History of present illness Debbie is a pleasant 88-year-old female who was admitted through the ED due to signs/symptoms suggestive of UTI. She came through the ED with her daughter via EMS last night for a complaint of abdominal pain. Patient has been having mild abdominal discomfort now for several days. Patient had been admitted into a [facility] observation status just a few days ago and diagnosed with urinary tract infection and was treated with Keflex. pertinent diagnostics 03/20 CT abdomen, possible wall thickening duodenum, possible duodenitis. Bladder unremarkable. No obstructing ureter 04/07 CT of the abdomen and pelvis without contrast, mild bilateral [place] ureter nephrosis extended from the kidneys due to the urinary bladder, slightly more prominent on the right, no obstructing stone or mass, Prehospital history --03/20; ED evaluation treated for UTI with Rocephin and with Keflex and released to home --04/01; [facility], due to suprapubic pain, cath UA demonstrated urine clear , normal without infection --04/03; ED evaluation due abdominal pain, no fevers, --04/07; ED evaluation due to abdominal pain, cath UA diagnosis of UTI-- admitted observation Primary hospital problems --Urinary tract infection, recurrent, complicated, continue with ceftriaxone Chronic/stable problems Hyperlipidemia Hypertension T2 DM Hypothyroidism Anxiety Vitamin B 12 deficiency Overall plan Depending on clinical course, history, patient may need further diagnostic workup - Mortality Measure Prognosis:: Good
[2019-04-08] MEDS ORDERED: Non-Formulary Medication 1 Each (Melatonin [Melatonin] 5 MG) PO PRN (16:45)
[2019-04-08] MEDS: METFORMIN 1000 MG PO SCH (18:56)
[2019-04-08] MEDS: cefTRIAXone 1 GM Vial IVPUSH SCH (19:51)
[2019-04-08] MEDS: Docusate Sodium 100 MG Cap PO SCH (21:36)
[2019-04-08] MEDS: Aspirin 81 MG Tab.EC PO SCH (21:36)
[2019-04-08] MEDS: METOPROLOL 25 MG PO SCH (21:42)
[2019-04-08] MEDS: MONTELUKAST 10 MG PO SCH (21:43)
[2019-04-08] MEDS: SERTRALINE 25 MG PO SCH (21:44)
[2019-04-08] MEDS: SERTRALINE 100 MG PO SCH (21:44)
[2019-04-08] MEDS: Timolol Maleate 0.5% Ophth Soln 5 ML Bottle EYEBOTH SCH (21:46)
[2019-04-09] MEDS: LEVOTHYROXINE 125 MCG PO SCH (07:40)
[2019-04-09] MEDS: OMEPRAZOLE 20 MG CAP *PT OWN MED PO SCH (07:40)
[2019-04-09] MEDS: METFORMIN 1000 MG PO SCH ×2 (07:41→17:55)
[2019-04-09] MEDS: METOPROLOL 25 MG PO SCH ×2 (08:39→21:01)
[2019-04-09] MEDS: Cyanocobalamin (Vitamin B12) 500 MCG Tab PO SCH (08:39)
[2019-04-09] MEDS: Docusate Sodium 100 MG Cap PO SCH ×2 (08:40→20:59)
[2019-04-09] MEDS: GLIPIZIDE 2.5 MG PO SCH (08:40)
[2019-04-09] MEDS ORDERED: GLIPIZIDE 2.5 MG PO SCH (09:00)
[2019-04-09] MEDS ORDERED: Magnesium Citrate Solution 296 ML Bottle PO ONE (09:11)
[2019-04-09] MEDS: Cetirizine 10 MG Tab PO SCH (09:51)
[2019-04-09] MEDS: Timolol Maleate 0.5% Ophth Soln 5 ML Bottle EYEBOTH SCH (09:57)
--- NOTE | 2019-04-09 10:09 | PCM.PN ---
- General Info Date of Service: 04/09/19 Functional Status: Reports: Tolerating Diet, New Symptoms (Abdominal pain, no decent bowel movement in 6 days) - Review of Systems General: Denies: Weakness, Fatigue Pulmonary: Reports: No Symptoms Cardiovascular: Reports: No Symptoms Gastrointestinal: Reports: Abdominal Pain, Constipation, Flatus. Denies: Diarrhea, Difficulty Swallowing, Melena, Nausea, Vomiting Genitourinary: Reports: Incontinence Skin: Reports: No Symptoms Neurological: Denies: Confusion Psychiatric: Denies: Agitation - Patient Data Vitals - Most Recent: Last Vital Signs Temp 97.8 F 04/08/19 22:55 Pulse 84 04/08/19 22:55 Resp 16 04/08/19 22:55 BP 131/69 04/08/19 22:55 Pulse Ox 96 04/08/19 22:55 Weight - Most Recent: 155 lb 8 oz I&O - Last 24 Hours: Intake & Output 04/08/19 04/09/19 04/09/19 22:59 06:59 14:59 Intake Total 200 100 Balance 200 100 Med Orders - Current: Current Medications Acetaminophen (Tylenol Extra Strength) 1,000 mg PO Q6H PRN PRN Reason: Pain (moderate 4-6) Last Admin: 04/08/19 19:04 Dose: 1,000 mg Alprazolam (Xanax) 0.25 mg PO BID PRN PRN Reason: Anxiety Last Admin: 04/08/19 21:41 Dose: 0.25 mg Aspirin (Halfprin) 81 mg PO BEDTIME [facility] Last Admin: 04/08/19 21:36 Dose: 81 mg Ceftriaxone Sodium (Rocephin) 1 gm IVPUSH Q24H [facility] Last Admin: 04/08/19 19:51 Dose: 1 gm Cetirizine HCl (Zyrtec) 10 mg PO DAILY [facility] Last Admin: 04/09/19 09:51 Dose: 10 mg Cyanocobalamin (Vitamin B12) 1,000 mcg PO DAILY [facility] Last Admin: 04/09/19 08:39 Dose: 1,000 mcg Docusate Sodium (Colace) 100 mg PO BID [facility] Last Admin: 04/09/19 08:40 Dose: 100 mg Melatonin (Melatonin) 6 mg PO BEDTIME PRN PRN Reason: Sleep Last Admin: 04/07/19 22:31 Dose: 6 mg Levothyroxine 125 (Mcg Tab *Pt Own Med*) 0 each PO ACBREAKFAST [facility] Last Admin: 04/09/19 07:40 Dose: 1 each Metoprolol 25 Mg Tab (*Pt Own Med*) 0 each PO BID [facility] Last Admin: 04/09/19 08:39 Dose: 1 each Montelukast 10 Mg (Tab *Pt Own Med*) 0 each PO BEDTIME [facility] Last Admin: 04/08/19 21:43 Dose: 1 each Omeprazole 20 Mg Cap (*Pt Own Med*) 0 each PO ACBREAKFAST [facility] Last Admin: 04/09/19 07:40 Dose: 1 each Sertraline 100 Mg (Tab *Pt Own Med*) 0 each PO BEDTIME [facility] Last Admin: 04/08/19 21:44 Dose: 1 each Metformin 1000 Mg (Tab *Pt Own Med*) 0 each PO BIDMEALS [facility] Last Admin: 04/09/19 07:41 Dose: 0.5 each Glipizide Er 2.5 Mg (Tab *Pt Own Med*) 0 each PO DAILY [facility] Last Admin: 04/09/19 08:40 Dose: 1 each Sertraline 25 Mg Tab (*Pt Own Med*) 0 each PO BEDTIME [facility] Last Admin: 04/08/19 21:44 Dose: 1 each Sodium Chloride (Saline Flush) 10 ml FLUSH Q8HR PRN PRN Reason: keep vein open Last Admin: 04/07/19 20:39 Dose: 10 ml Timolol Maleate (Timoptic 0.5% Ophth Soln) 0 ml EYEBOTH BID [facility] Last Admin: 04/09/19 09:57 Dose: Not Given Discontinued Medications Ceftriaxone Sodium (Rocephin) 1 gm IVPUSH ONETIME ONE Stop: 04/07/19 19:15 Last Admin: 04/07/19 20:30 Dose: 1 gm Magnesium Citrate (Citrate Of Magnesia) 200 ml PO ONETIME ONE Stop: 04/09/19 09:12 Last Admin: 04/09/19 09:52 Dose: 200 ml Metformin HCl (Glucophage) 500 mg PO BIDMEALS [facility] Last Admin: 04/08/19 18:08 Dose: 500 mg Metoclopramide HCl (Reglan) 5 mg IVPUSH ONETIME ONE Stop: 04/07/19 15:56 Last Admin: 04/07/19 18:45 Dose: 5 mg Metoprolol Tartrate (Lopressor) 25 mg PO BID [facility] Last Admin: 04/08/19 22:17 Dose: Not Given Non-Formulary Medication (Glipizide [Glipizide Xl]) 2.5 mg PO DAILY [facility] Non-Formulary Medication (Melatonin [Melatonin]) 5 mg PO BEDTIME PRN PRN Reason: Insomnia - Exam Quality Assessment: Supplemental Oxygen General: Alert, Oriented, Cooperative, No Acute Distress Neck: Supple Lungs: Clear to Auscultation, Normal Respiratory Effort Cardiovascular: Regular Rate, Regular Rhythm GI/Abdominal Exam: Soft, No Distention. No: Normal Bowel Sounds (Low bowel tones), Distended (Female) Exam: Deferred Back Exam: No: CVA Tenderness (R) Extremities: No Pedal Edema Peripheral Pulses: 2+: Radial (L), Radial (R) Neurological: Normal Speech. No: Normal Gait Sepsis Event Note - Evaluation Sepsis Screening Result: No Definite Risk - Focused Exam Vital Signs: Vital Signs Temp Pulse Resp BP Pulse Ox 04/08/19 22:55 97.8 F 84 16 131/69 96 Date Exam was Performed: 04/09/19 Time Exam was Performed: 10:10 - Problem List Review Problem List Initiated/Reviewed/Updated: Yes - My Orders Last 24 Hours: My Active Orders 04/08/19 20:00 cefTRIAXone [Rocephin] 1 gm IVPUSH Q24H 04/08/19 21:00 Docusate Sodium [Colace] 100 mg PO BID Patient's Own Medication [Ptom] 0 each PO BEDTIME Patient's Own Medication [Ptom] 0 each PO BEDTIME Patient's Own Medication [Ptom] 0 each PO BEDTIME Patient's Own Medication [Ptom] 0 each PO BID Timolol Maleate [Timoptic 0.5% Ophth Soln] 0 ml EYEBOTH BID 04/09/19 07:30 Patient's Own Medication [Ptom] 0 each PO ACBREAKFAST Patient's Own Medication [Ptom] 0 each PO ACBREAKFAST 04/09/19 09:00 Patient's Own Medication [Ptom] 0 each PO DAILY - Plan Plan:: History of present illness Debbie is a pleasant 88-year-old female who was admitted through the ED due to signs/symptoms suggestive of UTI. She came through the ED with her daughter via EMS last night for a complaint of abdominal pain. Patient has been having mild abdominal discomfort now for several days. Patient had been admitted into a [facility] observation status just a few days ago and diagnosed with urinary tract infection and was treated with Keflex. pertinent diagnostics 03/20 CT abdomen, possible wall thickening duodenum, possible duodenitis. Bladder unremarkable. No obstructing ureter 04/07 CT of the abdomen and pelvis without contrast, mild bilateral [place] ureter nephrosis extended from the kidneys due to the urinary bladder, slightly more prominent on the right, no obstructing stone or mass, Prehospital history --03/20; ED evaluation treated for UTI with Rocephin and with Keflex and released to home --04/01; [facility], due to suprapubic pain, cath UA demonstrated urine clear , normal without infection --04/03; ED evaluation due abdominal pain, no fevers, --04/07; ED evaluation due to abdominal pain, cath UA diagnosis of UTI-- admitted observation Primary hospital problems --Urinary tract infection, recurrent, complicated, continue with ceftriaxone, assess urine culture --Constipation, bowel clean-out today --Hypertension, not optimal Chronic/stable problems Hyperlipidemia T2 DM Hypothyroidism Anxiety Vitamin B 12 deficiency Overall plan --Continue observation, anticipate discharge in the a.m. after bowel clean-out today --Continue antibiotics --Depending on clinical course, history, patient may need further diagnostic workup
[2019-04-09 12:37] LABS: ANION GAP 12.8 mmol/L (5-15); CHLORIDE,CL 104 mmol/L (98-115); SODIUM,NA 143 mmol/L (136-145)
[2019-04-09] MEDS: Acetaminophen 500 MG Tab PO PRN ×2 (15:02→21:07)
[2019-04-09] MEDS: cefTRIAXone 1 GM Vial IVPUSH SCH (20:45)
[2019-04-09] MEDS: Sodium Chloride 0.9% 10 ML Syringe FLUSH PRN (20:55)
[2019-04-09] MEDS: CARBOXYMETHYLCELLULOSE SODIUM 0.5% EYEBOTH SCH (20:57)
[2019-04-09] MEDS: Timolol Maleate 0.5% Ophth Soln 5 ML Bottle **OWN MED EYEBOTH SCH (20:58)
[2019-04-09] MEDS: Aspirin 81 MG Tab.EC PO SCH (20:59)
[2019-04-09] MEDS: MONTELUKAST 10 MG PO SCH (21:00)
[2019-04-09] MEDS: SERTRALINE 25 MG PO SCH (21:00)
[2019-04-09] MEDS: SERTRALINE 100 MG PO SCH (21:02)
[2019-04-09] MEDS: Melatonin 3 MG Tab PO PRN (21:07)
[2019-04-10 07:15] VITALS: BP 161/92; PULSE 87
[2019-04-10] MEDS: LEVOTHYROXINE 125 MCG PO SCH (07:22)
[2019-04-10] MEDS: OMEPRAZOLE 20 MG CAP *PT OWN MED PO SCH (07:22)
[2019-04-10] MEDS: GLIPIZIDE 2.5 MG PO SCH (08:59)
[2019-04-10] MEDS: METFORMIN 1000 MG PO SCH (09:00)
[2019-04-10] MEDS: Cyanocobalamin (Vitamin B12) 500 MCG Tab PO SCH (09:01)
[2019-04-10] MEDS: Docusate Sodium 100 MG Cap PO SCH (09:01)
[2019-04-10] MEDS: Timolol Maleate 0.5% Ophth Soln 5 ML Bottle **OWN MED EYEBOTH SCH (09:02)
[2019-04-10] MEDS: CARBOXYMETHYLCELLULOSE SODIUM 0.5% EYEBOTH SCH (09:02)
[2019-04-10] MEDS: METOPROLOL 25 MG PO SCH (09:03)
[2019-04-10] MEDS: Cetirizine 10 MG Tab PO SCH (09:06)
== END 2019-04-10 13:30 | disposition home health service (06) ==
LOC: KA.ED 15:40 → KA.MS 19:41
PROVIDERS: ADMIT Physician Assistant Surgical; ATTEND Family Medicine
DX: N39.0 Urinary tract infection, site not specified (principal); N13.30 Unspecified hydronephrosis; E78.5 Hyperlipidemia, unspecified; I10 Essential (primary) hypertension; E11.9 Type 2 diabetes mellitus without complications; E03.9 Hypothyroidism, unspecified; F41.9 Anxiety disorder, unspecified; E53.8 Deficiency of other specified B group vitamins; E78.00 Pure hypercholesterolemia, unspecified; J44.9 Chronic obstructive pulmonary disease, unspecified; K21.9 Gastro-esophageal reflux disease without esophagitis; M19.90 Unspecified osteoarthritis, unspecified site; Z88.5 Allergy status to narcotic agent; Z88.2 Allergy status to sulfonamides; Z79.899 Other long term (current) drug therapy; Z79.82 Long term (current) use of aspirin; Z79.84 Long term (current) use of oral hypoglycemic drugs
CPT/HCPCS: 36415; 51798; 74176; 80048; 80053; 81001; 82962; 83690; 85025; 96374; 96375; 96376; 99285-25; A9270-GY; G0378; J0696; J2765

== ENCOUNTER 2019-06-20 08:22 | Emergency (ER) | payer MEDICARE, OTHER ==
[2019-06-20 09:03] VITALS: BP 154/87; PULSE 84
--- NOTE | 2019-06-20 09:07 | EDM.PDOC ---
ED HPI GENERAL MEDICAL PROBLEM - General Chief Complaint: Genitourinary Problem Stated Complaint: ABD PAIN Time Seen by Provider: 06/20/19 09:06 Source of Information: Reports: Patient, Family - History of Present Illness INITIAL COMMENTS - FREE TEXT/NARRATIVE: Onset with minimal complaint. Had been constipated, given suppository which relieved symptoms. Had bath yesterday using a different brush for cleansing and noted irritation thereafter. Also has perfumed wipes that may be contributing. Has had no rash or skin eruption noted by care provider or staff here today. History of UTIs with similar symptoms of frequency and burning, positive home test for UTI and was brought here for evaluation. Onset: Gradual Onset Date: 06/18/19 Duration: Day(s): Location: Reports: Pelvis Quality: Reports: Burning, Same as Previous Episode Severity: Moderate Associated Symptoms: Reports: Other (Urine frequency) Lower Abdominal Pain Score (Numeric/FACES): 3 - Related Data Allergies Allergy/AdvReac Type Severity Reaction Status Date / Time morphine Allergy Unknown Cannot Verified 06/20/19 09:11 Remember Sulfa (Sulfonamide Allergy Unknown Cannot Verified 06/20/19 09:11 Antibiotics) Remember Home Meds: Home Meds ALPRAZolam [Alprazolam] 0.25 mg PO BID PRN 04/30/13 [History] Aspirin [Halfprin] 81 mg PO BEDTIME 04/30/13 [History] Metoprolol Tartrate [Lopressor] 25 mg PO BID 04/30/13 [History] Omeprazole 20 mg PO ACBREAKFAST 04/30/13 [History] metFORMIN [Glucophage] 500 mg PO BIDMEALS 05/02/13 [History] Levothyroxine 125 mcg PO ACBREAKFAST 01/13/15 [History] Sertraline HCl 125 mg PO BEDTIME 04/07/16 [History] Magnesium Oxide 500 mg PO DAILY 06/07/16 [History] Timolol Maleate [Timoptic 0.5% Ophth Soln] 1 drop EYEBOTH BID 06/07/16 [History] Cetirizine [ZyrTEC] 10 mg PO DAILY 04/17/17 [History] Montelukast [Singulair] 10 mg PO BEDTIME 08/09/18 [History] Cyanocobalamin (Vitamin B-12) [Vitamin B-12] 1,000 mcg PO DAILY 01/11/19 [ History] Docusate Sodium [Colace] 100 mg PO BID 01/11/19 [History] glipiZIDE [Glipizide Xl] 2.5 mg PO DAILY 01/11/19 [History] Melatonin 5 mg PO BEDTIME PRN 04/03/19 [History] metroNIDAZOLE [Metrocream] 1 applic TP BID 5 Days #45 cream..g. 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: Musculoskeletal History: Reports: Arthritis, Other (See Below) Other Musculoskeletal History: chronic knee pain Neurological History: Reports: Headaches, Chronic Psychiatric History: Reports: Anxiety Endocrine/Metabolic History: Reports: Diabetes, Type II, Hypothyroidism Hematologic History: Reports: Anemia, B12 Deficiency Oncologic (Cancer) History: Reports: Uterine - Infectious Disease History Infectious Disease History: Reports: Shingles - Past Surgical History GI Surgical History: Reports: Appendectomy Female Surgical History: Reports: Hysterectomy Social & Family History - Family History Family Medical History: Noncontributory - Caffeine Use Caffeine Use: Reports: None Caffeine Use Comment: coke once in awhile ED ROS GENERAL - Review of Systems Review Of Systems: See Below Constitutional: Reports: No Symptoms HEENT: Reports: No Symptoms Respiratory: Reports: No Symptoms Cardiovascular: Reports: No Symptoms Endocrine: Reports: No Symptoms GI/Abdominal: Reports: Abdominal Pain, Constipation : Reports: Frequency, Incontinence Musculoskeletal: Reports: No Symptoms Skin: Reports: No Symptoms Neurological: Reports: No Symptoms Psychiatric: Reports: No Symptoms Hematologic/Lymphatic: Reports: No Symptoms Immunologic: Reports: No Symptoms ED EXAM, GENERAL - Physical Exam Exam: See Below Free Text/Narrative:: Alert cheerful conversing with me. HEENT negative to discharge nor deformity. [place] moist mucous membranes. Neck soft supple. Thorax clear mildly diminished bases Cardiac is regular Abdomen is soft bowel sounds are present no specific points of tenderness with mild pressure over the urinary bladder. Moves her extremities about with no difficulty or complaints. Urinalysis dipstick negative for UTI Was noticed to void around the catheter limiting the amount of sample we were able to obtained. Chronic incontinence. Course - Vital Signs Last Recorded V/S: Last Vital Signs Temp 35.9 C L 06/20/19 08:56 Pulse 84 06/20/19 08:56 Resp 18 06/20/19 08:56 BP 154/87 H 06/20/19 08:56 Pulse Ox 88 L 06/20/19 08:56 - Orders/Labs/Meds Labs: Laboratory Tests 06/20/19 Range/Units 08:45 Specimen Type Urinqcath Urine Color Yellow (YELLOW) Urine Appearance Clear (CLEAR) Urine pH 8.5 (5.0-9.0) Ur Specific [place] 1.015 (1.005-1.030) Urine Protein Negative (NEGATIVE) mg/dL Urine Glucose (UA) Negative (NEGATIVE) mg/dL Urine Ketones Negative (NEGATIVE) mg/dL Urine Occult Blood Trace-intact H (NEGATIVE) Urine Nitrite Negative (NEGATIVE) Urine Bilirubin Negative (NEGATIVE) Urine Urobilinogen 0.2 (0.2-1.0) E.U./dL Ur Leukocyte Esterase Negative (NEGATIVE) U Hyaline Cast (Auto) Cancelled Urine RBC Cancelled Urine WBC Cancelled Ur Epithelial Cells Cancelled Other Crystals Cancelled Amorphous Sediment Cancelled Urine Bacteria Cancelled Granular Casts (Auto) Cancelled Urine Mucus Cancelled Urine Other Cancelled Urine Trichomonas Cancelled Urine Yeast Cancelled Urinalysis Comment Cancelled Departure - Departure Time of Disposition: 09:29 Disposition: Home, Self-Care 01 Condition: Fair Clinical Impression: Perineal irritation in female - Discharge Information *PRESCRIPTION DRUG MONITORING PROGRAM REVIEWED*: Not Applicable *COPY OF PRESCRIPTION DRUG MONITORING REPORT IN PATIENT AMERICO: Not Applicable Referrals: Shannon Man PA-C [Primary Care Provider] - Forms: ED Department Discharge Additional Instructions: Use metronidazole topical cream twice daily for at least 5 days. Continue your other medications as directed. Contact your clinic next week for reevaluation if not showing improvement by Saturday morning. Compare the pads you are using to previous brand. Sepsis Event Note - Evaluation Sepsis Screening Result: No Definite Risk - Focused Exam Vital Signs: Vital Signs Temp Pulse Resp BP Pulse Ox 06/20/19 08:56 35.9 C L 84 18 154/87 H 88 L Date Exam was Performed: 06/20/19 Time Exam was Performed: 09:25 - Problem List & Annotations (1) Perineal irritation in female SNOMED Code(s): 722071030 Code(s): L98.9 - DISORDER OF THE SKIN AND SUBCUTANEOUS TISSUE, UNSPECIFIED Status: Acute Priority: Medium Current Visit: Yes - Problem List Review Problem List Initiated/Reviewed/Updated: Yes - Assessment/Plan Assessment:: Use metronidazole topical cream twice daily for at least 5 days. Continue your other medications as directed. Contact your clinic next week for reevaluation if not showing improvement by Saturday. Plan: Topical metronidazole twice a day. Avoid perfumed cleansing pads. Recheck at your clinic next week if not showing improvement. Continue all her other medications as previously ordered.
== END 2019-06-20 09:38 | disposition home or self-care (01) ==
LOC: KA.ED 08:22
DX: N89.8 Other specified noninflammatory disorders of vagina (principal); I25.2 Old myocardial infarction; I10 Essential (primary) hypertension; K21.9 Gastro-esophageal reflux disease without esophagitis; E03.9 Hypothyroidism, unspecified; E11.9 Type 2 diabetes mellitus without complications; Z79.2 Long term (current) use of antibiotics; Z79.890 Hormone replacement therapy; Z79.899 Other long term (current) drug therapy; Z88.0 Allergy status to penicillin; Z88.6 Allergy status to analgesic agent; J44.9 Chronic obstructive pulmonary disease, unspecified; Z79.84 Long term (current) use of oral hypoglycemic drugs
CPT/HCPCS: 81003; 99284

== ENCOUNTER 2019-08-22 06:05 | Emergency (ER) | payer MEDICARE, OTHER ==
[2019-08-22 06:51] VITALS: BP 163/71; PULSE 103
--- NOTE | 2019-08-22 07:23 | EDM.PDOC ---
ED HPI GENERAL MEDICAL PROBLEM - General Chief Complaint: Gastrointestinal Problem Stated Complaint: Constipation Time Seen by Provider: 08/22/19 07:00 Source of Information: Reports: Family (daughter) History Limitations: Reports: No Limitations - History of Present Illness INITIAL COMMENTS - FREE TEXT/NARRATIVE: 89-year-old female brought to emergency room by her daughter who is her primary care provider and lives with her for evaluation of abdominal pain and constipation. She was seen by [place] medical staff yesterday for constipation and was given mag citrate. She complained of increasing pain throughout the night and is now brought in today. Upon her arrival she has had 2 BMs. She feels better. She is nontoxic appearing. He had not had a bowel movement since Saturday. No nausea or vomiting. No fever or chills. Onset: Gradual Onset Date: 08/18/19 Duration: Day(s):, Improving Location: Reports: Abdomen Quality: Reports: Ache Severity: Moderate Improves with: Reports: Other (Bowel movement, magnesium citrate) Worsens with: Reports: None Associated Symptoms: Denies: Fever/Chills, Nausea/Vomiting Treatments NURSE INFECTION CONTROL: Reports: Other (see below) (Magnesium citrate) - Related Data Allergies Allergy/AdvReac Type Severity Reaction Status Date / Time morphine Allergy Unknown Cannot Verified 08/22/19 07:00 Remember Sulfa (Sulfonamide Allergy Unknown Cannot Verified 08/22/19 07:00 Antibiotics) Remember Home Meds: Home Meds ALPRAZolam [Alprazolam] 0.25 mg PO BID PRN 04/30/13 [History] Aspirin [Halfprin] 81 mg PO BEDTIME 04/30/13 [History] Metoprolol Tartrate [Lopressor] 25 mg PO BID 04/30/13 [History] Omeprazole 20 mg PO ACBREAKFAST 04/30/13 [History] metFORMIN [Glucophage] 500 mg PO BIDMEALS 05/02/13 [History] Levothyroxine 125 mcg PO ACBREAKFAST 01/13/15 [History] Sertraline HCl 125 mg PO BEDTIME 04/07/16 [History] Magnesium Oxide 500 mg PO DAILY 06/07/16 [History] Timolol Maleate [Timoptic 0.5% Ophth Soln] 1 drop EYEBOTH BID 06/07/16 [History] Cetirizine [ZyrTEC] 10 mg PO DAILY 04/17/17 [History] Montelukast [Singulair] 10 mg PO BEDTIME 08/09/18 [History] Cyanocobalamin (Vitamin B-12) [Vitamin B-12] 1,000 mcg PO DAILY 01/11/19 [ History] Docusate Sodium [Colace] 100 mg PO BID 01/11/19 [History] glipiZIDE [Glipizide Xl] 2.5 mg PO DAILY 01/11/19 [History] Melatonin 5 mg PO BEDTIME PRN 04/03/19 [History] metroNIDAZOLE [Metrocream] 1 applic TP BID 5 Days #45 cream..g. 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: Musculoskeletal History: Reports: Arthritis, Other (See Below) Other Musculoskeletal History: chronic knee pain Neurological History: Reports: Headaches, Chronic Psychiatric History: Reports: Anxiety Endocrine/Metabolic History: Reports: Diabetes, Type II, Hypothyroidism Hematologic History: Reports: Anemia, B12 Deficiency Oncologic (Cancer) History: Reports: Uterine - Infectious Disease History Infectious Disease History: Reports: Shingles - Past Surgical History Head Surgeries/Procedures: Reports: None GI Surgical History: Reports: Appendectomy Female Surgical History: Reports: Hysterectomy Social & Family History - Family History Family Medical History: Noncontributory - Tobacco Use Smoking Status *Q: Never Smoker Second Hand Smoke Exposure: No - Caffeine Use Caffeine Use: Reports: None Caffeine Use Comment: coke once in awhile - Recreational Drug Use Recreational Drug Use: No ED ROS GENERAL - Review of Systems Review Of Systems: Comprehensive ROS is negative, except as noted in HPI. ED EXAM, GI/ABD - Physical Exam Exam: See Below Exam Limited By: Other (pleasntly confused) Eyes: Bilateral: EOMI Ears: Hearing Grossly Normal Nose: Normal Inspection Throat/Mouth: Normal Voice, No Airway Compromise Head: Atraumatic, Normocephalic Neck: Normal Inspection, Supple Respiratory/Chest: No Respiratory Distress, Lungs Clear, Normal Breath Sounds Cardiovascular: Regular Rate, Rhythm GI/Abdominal Exam: Soft, Non-Tender, No Mass Rectal (Female) Exam: Hemorrhoids. No: Bloody Stool Extremities: Normal Inspection Neurological: Alert, Confused (pleasantly) Psychiatric: Normal Affect Skin Exam: Warm, Dry, Intact, Normal Color Course - Vital Signs Last Recorded V/S: Last Vital Signs Temp 99.5 F 08/22/19 06:26 Pulse 103 H 08/22/19 06:26 Resp 22 H 08/22/19 06:26 BP 163/71 H 08/22/19 06:26 Pulse Ox 90 L 08/22/19 06:26 - Orders/Labs/Meds Orders: Active Orders 24 hr Category Date Time Status Abdomen 2V AP Upright Decub [CR] Stat Exams 08/22/19 06:40 Taken - Radiology Interpretation Free Text/Narrative:: X-rays abdominal series Findings: Lung bases are clear. The bowel gas pattern is nonspecific and unremarkable. There is no evidence of obstruction. No pneumoperitoneum is identified. Surgical clips are present lower abdomen and pelvis bilaterally. No acute osseous abnormality. Moderate degenerative changes in right convexity scoliosis curvature lumbar spine. Impression: Nonspecific abdominal series. No significant abdominal abnormality identified. - Re-Assessments/Exams Free Text/Narrative Re-Assessment/Exam: 08/22/19 07:27 Patient presents with constipation complaints for 4 days. She has had 3 small BM 's since arrival to ER. I've discussed with the daughter routine with stool softeners and stimulants. It is not uncommon for this medication to take sometimes 24-48 hours. It seems that she is now beginning to have some bowel movements. She does not appear toxic. Her belly soft. And we will just continue with observation at this time. There are agreeable to being discharged to home under the daughter's care.. Departure - Departure Time of Disposition: 08:15 Disposition: Home, Self-Care 01 Condition: Good Clinical Impression: Constipation - Discharge Information *PRESCRIPTION DRUG MONITORING PROGRAM REVIEWED*: No *COPY OF PRESCRIPTION DRUG MONITORING REPORT IN PATIENT AMERICO: No Instructions: Constipation, Adult, [id number] Referrals: Shannon Man PA-C [Physician Tie Up Worker] - Forms: ED Department Discharge Sepsis Event Note - Evaluation Sepsis Screening Result: No Definite Risk - Focused Exam Vital Signs: Vital Signs Temp Pulse Resp BP Pulse Ox 08/22/19 06:26 99.5 F 103 H 22 H 163/71 H 90 L Date Exam was Performed: 08/22/19 Time Exam was Performed: 07:49 - My Orders Last 24 Hours: My Active Orders 08/22/19 06:40 Abdomen 2V AP Upright Decub [CR] Stat - Assessment/Plan Last 24 Hours: My Active Orders 08/22/19 06:40 Abdomen 2V AP Upright Decub [CR] Stat Assessment:: constipation Plan: 1. Observation at this time. Patient has had 3 small bowel movements in the the ER. This is indicating that she is now having some relief of her constipation with the magnesium citrate. 2. Daughter may give her a stool softeners but I would not continue with any current stimulant as she seems to be having bowel movements. 3. Follow-up with your primary care if recurrence of symptoms occur.
--- NOTE | 2019-08-22 08:28 | CR ---
[id number] RAD/RAD Abd Flat and Upright 2V EXAM: RAD Abd Flat and Upright 2V INDICATION: CONSTIPATION COMPARISON: None. DISCUSSION: Unobstructed bowel gas pattern. No radiographically evident pneumoperitoneum. Surgical clips in the lower abdomen and pelvis. Moderate degenerative changes and dextroscoliotic curvature of the lumbar spine. IMPRESSION: No acute findings in the abdomen. Dashawn Henry DO 08/22/19 0827 Thank you for allowing us to participate in the care of your patient.
== END 2019-08-22 08:05 | disposition home or self-care (01) ==
LOC: KA.ED 06:05
DX: K59.00 Constipation, unspecified (principal); E78.00 Pure hypercholesterolemia, unspecified; I10 Essential (primary) hypertension; I25.2 Old myocardial infarction; J44.9 Chronic obstructive pulmonary disease, unspecified; M19.90 Unspecified osteoarthritis, unspecified site; E03.9 Hypothyroidism, unspecified; E11.9 Type 2 diabetes mellitus without complications; K21.9 Gastro-esophageal reflux disease without esophagitis; F41.9 Anxiety disorder, unspecified; Z88.5 Allergy status to narcotic agent; Z88.2 Allergy status to sulfonamides; Z79.82 Long term (current) use of aspirin; Z79.899 Other long term (current) drug therapy; Z79.84 Long term (current) use of oral hypoglycemic drugs
CPT/HCPCS: 74021; 99284; 99284-25

== ENCOUNTER 2019-10-18 22:00 | Emergency (ER) | payer MEDICARE, OTHER ==
[2019-10-18] MEDS: HYDROmorphone 1 MG/ML Syringe IVPUSH ONE (22:25)
[2019-10-18 22:48] LABS: ANION GAP 17.1 mmol/L (5-15); CHLORIDE,CL 106 mmol/L (98-115); SODIUM,NA 147 mmol/L (136-145)
--- NOTE | 2019-10-18 22:51 | EDM.PDOC ---
ED HPI GENERAL MEDICAL PROBLEM - General Chief Complaint: General Stated Complaint: jaw pain Time Seen by Provider: 10/18/19 22:30 Source of Information: Reports: Patient, Family (daughter) History Limitations: Reports: No Limitations (other than very hard of hearing) - History of Present Illness INITIAL COMMENTS - FREE TEXT/NARRATIVE: Patient presents with severe pain in the right lateral neck that started abruptly at 2100 tonight. She rates the pain at 10/10 and says she has never had anything like this before. She doesn't have any teeth and denies any fever; not aware of any abscess. No history of carotid problems. Daughter helps with a lot of the history details. Denies pain in chest or abdomen. right side of jaw and neck Pain Score (Numeric/FACES): 10 - Related Data Allergies Allergy/AdvReac Type Severity Reaction Status Date / Time morphine Allergy Unknown Cannot Verified 10/18/19 22:34 Remember Sulfa (Sulfonamide Allergy Unknown Cannot Verified 10/18/19 22:34 Antibiotics) Remember Home Meds: Home Meds ALPRAZolam [Alprazolam] 0.25 mg PO BID PRN 04/30/13 [History] Aspirin [Halfprin] 81 mg PO BEDTIME 04/30/13 [History] Metoprolol Tartrate [Lopressor] 25 mg PO BID 04/30/13 [History] Omeprazole 20 mg PO ACBREAKFAST 04/30/13 [History] metFORMIN [Glucophage] 500 mg PO BIDMEALS 05/02/13 [History] Levothyroxine 125 mcg PO ACBREAKFAST 01/13/15 [History] Sertraline HCl 125 mg PO BEDTIME 04/07/16 [History] Magnesium Oxide 500 mg PO DAILY 06/07/16 [History] Timolol Maleate [Timoptic 0.5% Ophth Soln] 1 drop EYEBOTH BID 06/07/16 [History] Cetirizine [ZyrTEC] 10 mg PO DAILY 04/17/17 [History] Montelukast [Singulair] 10 mg PO BEDTIME 08/09/18 [History] Cyanocobalamin (Vitamin B-12) [Vitamin B-12] 1,000 mcg PO DAILY 01/11/19 [History] Docusate Sodium [Colace] 100 mg PO BID 01/11/19 [History] glipiZIDE [Glipizide Xl] 2.5 mg PO DAILY 01/11/19 [History] Melatonin 5 mg PO BEDTIME PRN 04/03/19 [History] metroNIDAZOLE [Metrocream] 1 applic TP BID 5 Days #45 cream..g. 06/20/19 [Rx] Past Medical History HEENT History: Reports: Hard of Hearing, Impaired Vision Cardiovascular History: Reports: High Cholesterol, Hypertension, CO Respiratory History: Reports: COPD, SOB Other Respiratory History: on home O2 at night (2.5L) Gastrointestinal History: Reports: Chronic Constipation, GERD, Hemorrhoids Genitourinary History: Reports: Urinary Incontinence, UTI, Recurrent Other Genitourinary History: blood in urine (Mar 2019) [employer] History: Reports: Musculoskeletal History: Reports: Arthritis, Other (See Below) Other Musculoskeletal History: chronic knee pain Neurological History: Reports: Headaches, Chronic Psychiatric History: Reports: Anxiety Endocrine/Metabolic History: Reports: Diabetes, Type II, Hypothyroidism Hematologic History: Reports: Anemia, B12 Deficiency Oncologic (Cancer) History: Reports: Uterine - Infectious Disease History Infectious Disease History: Reports: Shingles - Past Surgical History Head Surgeries/Procedures: Reports: None GI Surgical History: Reports: Appendectomy Female Surgical History: Reports: Hysterectomy Social & Family History - Family History Family Medical History: Noncontributory - Tobacco Use Smoking Status *Q: Never Smoker Second Hand Smoke Exposure: No - Caffeine Use Caffeine Use: Reports: None Caffeine Use Comment: coke once in awhile - Recreational Drug Use Recreational Drug Use: No ED ROS GENERAL - Review of Systems Review Of Systems: See Below Constitutional: Denies: Fever, Chills, Malaise, Weakness HEENT: Reports: Ear Pain (right), Hearing Loss (chronic, significant). Denies: Vision Change Respiratory: Denies: Shortness of Breath, Cough Cardiovascular: Denies: Chest Pain, Lightheadedness, Syncope GI/Abdominal: Denies: Abdominal Pain, Vomiting : Denies: Dysuria Musculoskeletal: Reports: Neck Pain. Denies: Shoulder Pain, Arm Pain, Back Pain, Hand Pain Skin: Denies: Cyanosis, Jaundice, Mottled, Pallor, Diaphoresis Neurological: Denies: Confusion, Dizziness, Headache, Seizure, Syncope, Trouble Speaking Psychiatric: Denies: Agitation, Anxiety, Confusion ED EXAM, GENERAL - Physical Exam Exam: See Below Exam Limited By: No Limitations General Appearance: Alert, WD/WN, No Apparent Distress Eye Exam: Bilateral Eye: EOMI, Normal Inspection, PERRL Ears: Normal External Exam, Normal Canal, Hearing Grossly Normal, Normal TMs Nose: Normal Inspection, No Blood Throat/Mouth: Normal Lips, Normal Gums, Normal Oropharynx, Normal Voice, No Airway Compromise, Other (No teeth; gums are not red, swollen or tender. Somewhat tender to palpation of right tongue base/mouth floor but no palpable or visual abnormality on exam.) Head: Atraumatic, Normocephalic Neck: Supple, Full Range of Motion, Other (tender to palpation of soft tissues right lateral neck; non-specific but in carotid region; no pulsatile swelling; carotid pulses are weak bilaterally). No: Carotid Bruit Respiratory/Chest: No Respiratory Distress, Lungs Clear, Normal Breath Sounds, No Accessory Muscle Use Cardiovascular: Regular Rate, Rhythm, No Murmur GI/Abdominal: Soft, Non-Tender, No Organomegaly, No Distention Back Exam: Normal Inspection, Full Range of Motion Neurological: Alert, Oriented, Normal Cognition, No Motor/Sensory Deficits Psychiatric: Normal Affect, Normal Mood Skin Exam: Warm, Dry, Intact, Normal Color, No Rash Course - Vital Signs Last Recorded V/S: Last Vital Signs Temp 96.7 F L 10/18/19 22:00 Pulse 100 10/18/19 22:00 Resp 16 10/18/19 22:00 BP 162/106 H 10/18/19 22:00 Pulse Ox 93 L 10/18/19 22:00 - Orders/Labs/Meds Orders: Active Orders 24 hr Category Date Time Status Soft Tissue Neck w Cont [CT] Stat Exams 10/18/19 23:06 Ordered Sodium Chloride 0.9% @ 999 MLS/HR (1000ml) Med 10/18/19 22:55 Ordered Sodium Chloride 0.9% [Normal Saline] 1,000 ml IV .BOLUS Medication Orders Sodium Chloride (Normal Saline) 1,000 mls @ 999 mls/hr IV .BOLUS ONE Stop: 10/18/19 23:55 Labs: Laboratory Tests 10/18/19 10/18/19 Range/Units 22:20 22:20 WBC 6.04 (5.00-10.00) 10^3/uL RBC 4.00 (3.80-5.50) 10^6/uL Hgb 11.2 L D (12.0-16.0) g/dL Hct 36.3 L (37.0-47.0) % MCV 90.8 (82.0-92.0) fL MCH 28.0 (27.0-31.0) pg MCHC 30.9 L (32.0-36.0) g/dL RDW 13.7 (11.5-14.5) % Plt Count 186 (150-400) 10^3/uL MPV 10.5 H (7.4-10.4) fL Immature Gran % (Auto) 0.3 (0.0-5.0) % Neut % (Auto) 56.2 (50.0-70.0) % Lymph % (Auto) 30.8 (20.0-40.0) % [place] % (Auto) 7.9 (2.0-8.0) % Eos % (Auto) 4.5 H (1.0-3.0) % Baso % (Auto) 0.3 (0.0-1.0) % Neut # (Auto) 3.39 (2.50-7.00) 10^3/uL Lymph # (Auto) 1.86 (1.00-4.00) 10^3/uL [place] # (Auto) 0.48 (0.10-0.80) 10^3/uL Eos # (Auto) 0.27 (0.10-0.30) 10^3/uL Baso # (Auto) 0.02 (0.00-0.10) 10^3/uL Immature Gran # (Auto) 0.02 (0.00-0.50) 10^3/uL Sodium 147 H (136-145) mmol/L Potassium 4.3 (3.3-5.3) mmol/L Chloride 106 (98-115) mmol/L Carbon Dioxide 28.2 (21.0-32.0) mmol/L Anion Gap 17.1 H (5-15) mmol/L BUN 15 (6-25) mg/dL Creatinine 0.72 (0.51-1.17) mg/dL Est Cr Clr Drug Dosing 38.05 mL/min Estimated GFR (MDRD) > 60 mL/min Glucose 175 H (75 - 99) mg/dL Calcium 8.2 L (8.7-10.3) mg/dL C-Reactive Protein < 0.2 (0.0-0.9) mg/dL Meds: Medications Generic Name Dose Route Start Last Admin Trade Name Jade PRN Reason Stop Dose Admin Sodium Chloride 1,000 mls @ 999 mls/hr 10/18/19 22:55 Normal Saline IV 10/18/19 23:55 .BOLUS ONE Discontinued Medications Generic Name Dose Route Start Last Admin Trade Name Jade PRN Reason Stop Dose Admin Hydromorphone HCl 1 mg 10/18/19 22:16 Dilaudid IVPUSH 10/18/19 22:17 ONETIME ONE Sodium Chloride 50 mls @ 200 mls/min 10/18/19 23:00 10/18/19 23:36 Normal Saline IV 10/18/19 23:01 200 mls/min ONETIME ONE Administration Iopamidol 100 ml 10/18/19 23:00 10/18/19 23:36 Isovue-370 (76%) IV 10/18/19 23:01 75 ml ONETIME ONE Administration - Re-Assessments/Exams Free Text/Narrative Re-Assessment/Exam: 10/19/19 00:[address] contrast soft tissue CT shows no acute pathology, masses, collections, enlarged tonsils or nodes. I discussed findings with patient and her daughter. Patient says the pain is now completely gone. We discussed that it could be a salivary stone that has passed. She will follow up with her PCP as needed. Discharged to home in stable condition. Departure - Departure Time of Disposition: 00:44 Disposition: Home, Self-Care 01 Condition: Good Clinical Impression: Acute neck pain - Discharge Information Forms: ED Department Discharge Additional Instructions: Follow up with your PCP if symptoms return or persist. You could also try eating a pickle or something that would stimulate saliva production. It is possible that the pain was from a salivary stone that has now passed. Sepsis Event Note (ED) - Evaluation Sepsis Screening Result: No Definite Risk - Focused Exam Vital Signs: Vital Signs Temp Pulse Resp BP Pulse Ox 10/18/19 22:00 96.7 F L 100 16 162/106 H 93 L - My Orders Last 24 Hours: My Active Orders 10/18/19 22:55 Sodium Chloride 0.9% @ 999 MLS/HR (1000ml) Sodium Chloride 0.9% [Normal Saline] 1,000 ml IV .BOLUS 10/18/19 23:06 Soft Tissue Neck w Cont [CT] Stat - Assessment/Plan Last 24 Hours: My Active Orders 10/18/19 22:55 Sodium Chloride 0.9% @ 999 MLS/HR (1000ml) Sodium Chloride 0.9% [Normal Saline] 1,000 ml IV .BOLUS 10/18/19 23:06 Soft Tissue Neck w Cont [CT] Stat
[2019-10-18] MEDS: Sodium Chloride 0.9% 1,000 ML IV ONE (23:05)
[2019-10-18] MEDS: Iopamidol 755 Mg/ML 100 ML Bottle IV ONE (23:36)
[2019-10-18] MEDS: Sodium Chloride 0.9% 50 ML IV ONE (23:36)
[2019-10-19 01:11] VITALS: BP 137/64; PULSE 85
== END 2019-10-19 01:06 | disposition home or self-care (01) ==
LOC: KA.ED 22:00
DX: M54.2 Cervicalgia (principal); I10 Essential (primary) hypertension; I25.2 Old myocardial infarction; J44.9 Chronic obstructive pulmonary disease, unspecified; K21.9 Gastro-esophageal reflux disease without esophagitis; F41.9 Anxiety disorder, unspecified; E11.9 Type 2 diabetes mellitus without complications; E03.9 Hypothyroidism, unspecified; Z79.899 Other long term (current) drug therapy; Z79.84 Long term (current) use of oral hypoglycemic drugs; Z88.5 Allergy status to narcotic agent; Z88.2 Allergy status to sulfonamides; Z79.82 Long term (current) use of aspirin; Z99.81 Dependence on supplemental oxygen
CPT/HCPCS: 36415; 70491; 80048; 85025; 86140; 96374; 99284; 99284-25; J1170; J7030; J7050; Q9967